=== PATIENT | female | born 1975 | race Hispanic/Latino ===

== ENCOUNTER 2017-04-25 22:11 | Emergency (ER) | payer MEDICAID ==
[2017-04-26 00:12] LABS: Anion Gap 16 mmol/L; Blood Urea Nitrogen 7 mg/dL (7-17); Calcium 9.1 mg/dL (8.4-10.2); Carbon Dioxide 27 mmol/L (22-30); Chloride 101.2 mmol/L (98-107); Glucose 95 mg/dL (65-100); Potassium 3.6 mmol/L (3.6-5.0); Sodium 141 mmol/L (137-145)
[2017-04-26 00:29] LABS: Basophils % (Auto) 0.3 % (0.0-1.8); Eosinophils % (Auto) 2.6 % (0.0-4.3); Hematocrit 40.4 % (30.3-42.9); Hemoglobin 13.2 gm/dl (10.1-14.3); Mean Corpuscular HGB Conc 33 % (30-34); Mean Corpuscular Hemoglobin 28 pg (28-32); Mean Corpuscular Volume 86 fl (79-97); Platelet Count 281 K/mm3 (140-440); Red Blood Count 4.69 M/mm3 (3.65-5.03); Red Cell Distribution Width 13.4 % (13.2-15.2); White Blood Count 10.7 K/mm3 (4.5-11.0)
[2017-04-26 00:39] LABS: INR 1.04 (0.87-1.13)
[2017-04-26 00:40] LABS: Partial Thromboplastin Time 26.4 Sec. (24.2-36.6)
[2017-04-26] MEDS ORDERED: PROVENTIL IH ONE ×2 (01:41→04:28)
[2017-04-26] MEDS ORDERED: TYLENOL PO ONE (01:41)
[2017-04-26] MEDS ORDERED: NACL 0.9% 250ML 250 ML IV ONE (01:41)
--- NOTE | 2017-04-26 01:42 | Emergency Department Report ---
ED Chest Pain HPI - General Chief Complaint: Chest Pain Stated Complaint: CHEST PAIN Time Seen by Provider: 04/26/17 01:32 Source: patient, RN notes reviewed, old records reviewed Mode of arrival: Ambulatory Limitations: No Limitations - History of Present Illness Initial Comments: This is a 42-year-old female. This provider has evaluated the patient in the past. Has a past medical history of acute on chronic chest pain, neuropathy, possible anxiety, asthma/bronchitis. This provider saw the patient 10/01/2015 for chest pain. At that time, the patient endorses a history of 2 negative cardiac catheterizations, as well as a negative cardiac stress test. She made no mention of a history of cardiac arrest, pulmonary embolus, or thromboembolic disease. Today, the patient presents to the ER complaining of chest pain that is left- sided. It radiates to the left arm and left rib. Patient endorsed to the triage nurse shortness of breath, nausea, headache and diaphoresis. Patient indicated that the pain started 5 hours prior to presentation. Patient also endorses cough, cold, recent antibiotic course. Patient to me denies leg pain, leg swelling, recent change greater than 4 hours , recent hospital admissions. She endorsed to the triage nurse a history of congestive heart failure, mitral valve prolapse, myocardial infarction, COPD, seizure, cardiac arrest, and blood clot. I specifically asked the patient when she had her cardiac arrest and blood clot , as she did not mention this history to me in September 2015. Patient stated that she wasn't sure, "maybe it happened at another hospital, I just don't know." The patient states the pain increases with palpation, and decreases with rest. The patient denies recent trips greater than 4 hours, surgeries, cocaine use, aspirin use. MD Complaint: chest pain -: Gradual Onset: during rest Pain Location: left chest Pain Radiation: LUE, back Severity: mild Quality: aching Consistency: intermittent Improves With: rest Worsens With: palpation re: dyspnea Treatments Prior to Arrival: none Aspirin use within the Past 7 Days: (0) No - Related Data On Oral Contraceptives: No Home Medications Medication Instructions Recorded Confirmed Last Taken Fluticasone/Salmeterol [Advair 1 puff INHALATION BID 02/15/14 10/01/15 04/01/15 Diskus 250-50 mcg] Diltiazem HCl [Diltiazem ER] 240 mg PO DAILY 10/01/15 10/01/15 04/01/15 Furosemide [Lasix] 20 mg PO QDAY 10/01/15 10/01/15 04/01/15 Potassium Chloride [K-Dur] 10 meq PO QDAY 10/01/15 10/01/15 04/01/15 Rizatriptan Benzoate [Maxalt] 5 mg PO DAILY 10/01/15 10/01/15 04/01/15 Previous Rx's Medication Instructions Recorded Last Taken Type Gabapentin [Gralise] 600 mg PO QDAY #30 tab.er.24h 05/26/14 04/01/15 Rx Rizatriptan Benzoate [Maxalt] 5 mg PO Q2HR #10 tab 11/27/14 04/01/15 Rx Albuterol Sulfate [Ventolin HFA] 2 puff IH Q4H PRN #1 hfa.aer.ad 02/06/15 Rx Ondansetron [Zofran ODT TAB] 8 mg PO Q12HR #6 tab.rapdis 04/03/15 Unknown Rx Ibuprofen [Motrin] 600 mg PO Q8H PRN #30 tablet 04/26/17 Unknown Rx Allergies Allergy/AdvReac Type Severity Reaction Status Date / Time phenobarbital AdvReac Unknown Verified 04/03/15 13:33 phenytoin sodium AdvReac Unknown Verified 04/03/15 13:33 [From Dilantin] phenytoin sodium extended AdvReac Unknown Verified 04/03/15 13:33 [From Dilantin] pseudoephedrine HCl AdvReac Unknown Verified 04/03/15 13:33 [From Sudafed] sulfamethoxazole AdvReac Unknown Verified 04/03/15 13:33 [From Bactrim] trimethoprim [From Bactrim] AdvReac Unknown Verified 04/03/15 13:33 triprolidine HCl AdvReac Unknown Verified 04/03/15 13:33 [From Actifed] Heart Score - HEART Score History: Slightly suspicious EKG: Normal Age: < 45 Risk factors: 1-2 risk factors Troponin: < normal limit HEART Score: 1 - Critical Actions Critical Actions: 0-3 pts:0.9-1.7%risk of adverse cardiac event.Candidate for discharge ED Review of Systems ROS: Stated complaint: CHEST PAIN Other details as noted in HPI Constitutional: see HPI, malaise, weakness Eyes: denies: eye discharge ENT: congestion Respiratory: cough, shortness of breath. denies: wheezing Cardiovascular: denies: chest pain, palpitations Endocrine: no symptoms reported Gastrointestinal: denies: abdominal pain, nausea Genitourinary: denies: urgency, dysuria, discharge Musculoskeletal: back pain, arthralgia. denies: joint swelling Skin: denies: rash, lesions Neurological: headache, weakness. denies: paresthesias Psychiatric: anxiety. denies: depression, homicidal thoughts, suicidal thoughts Hematological/Lymphatic: denies: easy bleeding, easy bruising ED Past Medical Hx - Past Medical History Previous Medical History?: Yes Hx Hypertension: Yes Hx Heart Attack/AMI: Yes (she thinks she's had an NV in the past) Hx Congestive Heart Failure: Yes Hx Headaches / Migraines: Yes Hx Seizures: Yes (not on any medication x 3 years) Hx Asthma: Yes Hx COPD: Yes Additional medical history: MVP, Told she had a blood clot in the past but doesn 't know where, States she has had cardiac arrest and had to be shocked in the past - Surgical History Past Surgical History?: Yes Additional Surgical History: X 3. cardiaC cath X 2 - Social History Smoking Status: Never Smoker - Medications Home Medications: Home Medications Medication Instructions Recorded Confirmed Last Taken Type Fluticasone/Salmeterol [Advair 1 puff INHALATION BID 02/15/14 10/01/15 04/01/15 History Diskus 250-50 mcg] Gabapentin [Gralise] 600 mg PO QDAY #30 tab.er.24h 05/26/14 10/01/15 04/01/15 Rx Rizatriptan Benzoate [Maxalt] 5 mg PO Q2HR #10 tab 11/27/14 10/01/15 04/01/15 Rx Albuterol Sulfate [Ventolin HFA] 2 puff IH Q4H PRN #1 hfa.aer.ad 02/06/1504/01/15 Rx Ondansetron [Zofran ODT TAB] 8 mg PO Q12HR #6 tab.rapdis 04/03/15 10/01/15 Unknown Rx Diltiazem HCl [Diltiazem ER] 240 mg PO DAILY 10/01/15 10/01/15 04/01/15 History Furosemide [Lasix] 20 mg PO QDAY 10/01/15 10/01/15 04/01/15 History Potassium Chloride [K-Dur] 10 meq PO QDAY 10/01/15 10/01/15 04/01/15 History Rizatriptan Benzoate [Maxalt] 5 mg PO DAILY 10/01/15 10/01/15 04/01/15 History Ibuprofen [Motrin] 600 mg PO Q8H PRN #30 tablet 04/26/17 Unknown Rx ED Physical Exam - General Limitations: No Limitations General appearance: alert, in no apparent distress, anxious - Head Head exam: Present: atraumatic, normocephalic - Eye Eye exam: Present: normal appearance, EOMI. Absent: nystagmus - ENT ENT exam: Present: normal exam, normal orophraynx, mucous membranes moist, normal external ear exam - Neck Neck exam: Present: normal inspection, full ROM. Absent: tenderness, meningismus - Respiratory Respiratory exam: Present: normal lung sounds bilaterally, chest wall tenderness , other (the bilateral breast exam is unremarkable. There is reproducible anterior chest wall tenderness. During the breast examination, I am escorted by ER nurse Karla Pena). Absent: respiratory distress, wheezes, rales, rhonchi, stridor - Cardiovascular Cardiovascular Exam: Present: regular rate, normal rhythm, normal heart sounds. Absent: bradycardia, tachycardia, irregular rhythm, systolic murmur, diastolic murmur, rubs, gallop - GI/Abdominal GI/Abdominal exam: Present: soft, normal bowel sounds. Absent: distended, tenderness, guarding, rebound, rigid, pulsatile mass - Extremities Exam Extremities exam: Present: normal inspection, full ROM, normal capillary refill. Absent: pedal edema, joint swelling, calf tenderness - Back Exam Back exam: Present: normal inspection, full ROM. Absent: tenderness, CVA tenderness (R), CVA tenderness (L), muscle spasm, paraspinal tenderness, vertebral tenderness - Neurological Exam Neurological exam: Present: alert, oriented X3, normal gait, other (Extraocular movements intact. Tongue midline. No facial droop. Facial sensation intact to light touch in the V1, V2, V3 distribution bilaterally. 5 and 5 strength in 4 extremities.. Sensation is intact to light touch in 4 extremities.). Absent : motor sensory deficit - Psychiatric Psychiatric exam: Present: agitated, anxious. Absent: homicidal ideation, suicidal ideation - Skin Skin exam: Present: warm, dry, intact, normal color. Absent: rash ED Course Vital Signs 04/25/17 22:55 Temperature 97.9 F Pulse Rate 77 Respiratory 20 Rate Blood Pressure 157/81 O2 Sat by Pulse 99 Oximetry AMRIT score - Amrit Score Age > 65: (0) No Aspirin use within the Past 7 Days: (0) No 3 or more CAD Risk Factors: (0) No 2 or more Angina events in past 24 hrs: (0) No Known CAD with more than 50% Stenosis: (0) No Elevated Cardiac Markers: (0) No ST Deviation Greater than 0.5mm: (0) No AMRIT Score: 0 ED Medical Decision Making - Lab Data Result diagrams: 04/25/17 23:20 04/25/17 23:20 Vital Signs 04/25/17 22:55 Temperature 97.9 F Pulse Rate 77 Respiratory 20 Rate Blood Pressure 157/81 O2 Sat by Pulse 99 Oximetry Lab Results 04/25/17 04/25/17 04/25/17 Range/Units 23:20 23:20 23:20 WBC 10.7 (4.5-11.0) K/mm3 RBC 4.69 (3.65-5.03) M/mm3 Hgb 13.2 (10.1-14.3) gm/dl Hct 40.4 (30.3-42.9) % MCV 86 (79-97) fl MCH 28 (28-32) pg MCHC 33 (30-34) % RDW 13.4 (13.2-15.2) % Plt Count 281 (140-440) K/mm3 Lymph % (Auto) 30.4 (13.4-35.0) % White % (Auto) 9.2 H (0.0-7.3) % Eos % (Auto) 2.6 (0.0-4.3) % Baso % (Auto) 0.3 (0.0-1.8) % Lymph # 3.3 (1.2-5.4) K/mm3 White # 1.0 H (0.0-0.8) K/mm3 Eos # 0.3 (0.0-0.4) K/mm3 Baso # 0.0 (0.0-0.1) K/mm3 Seg Neutrophils % 57.5 (40.0-70.0) % Seg Neutrophils # 6.2 (1.8-7.7) K/mm3 PT (12.2-14.9) Sec. INR (0.87-1.13) APTT (24.2-36.6) Sec. D-Dimer (0-234) ng/mlDDU Sodium 141 (137-145) mmol/L Potassium 3.6 (3.6-5.0) mmol/L Chloride 101.2 (98-107) mmol/L Carbon Dioxide 27 (22-30) mmol/L Anion Gap 16 mmol/L BUN 7 (7-17) mg/dL Creatinine 0.5 L (0.7-1.2) mg/dL Estimated GFR > 60 ml/min BUN/Creatinine Ratio 14.00 % Glucose 95 (65-100) mg/dL Calcium 9.1 (8.4-10.2) mg/dL Troponin T < 0.010 (0.00-0.029) ng/mL NT-Pro-B Natriuret Pep 74.45 (0-450) pg/mL HCG, Quant (0-4) mIU/mL Urine Color (Yellow) Urine Turbidity (Clear) Urine pH (5.0-7.0) Ur Specific [place] (1.003-1.030) Urine Protein (Negative) mg/dL Urine Glucose (UA) (Negative) mg/dL Urine Ketones (Negative) mg/dL Urine Blood (Negative) Urine Nitrite (Negative) Urine Bilirubin (Negative) Urine Urobilinogen (<2.0) mg/dL Ur Leukocyte Esterase (Negative) Urine WBC (Auto) (0.0-6.0) /HPF Urine RBC (Auto) (0.0-6.0) /HPF U Epithel Cells (Auto) (0-13.0) /HPF Urine Mucus /HPF Urine HCG, Qual (Negative) 04/25/17 04/26/17 04/26/17 Range/Units 23:46 00:15 01:55 WBC (4.5-11.0) K/mm3 RBC (3.65-5.03) M/mm3 Hgb (10.1-14.3) gm/dl Hct (30.3-42.9) % MCV (79-97) fl MCH (28-32) pg MCHC (30-34) % RDW (13.2-15.2) % Plt Count (140-440) K/mm3 Lymph % (Auto) (13.4-35.0) % White % (Auto) (0.0-7.3) % Eos % (Auto) (0.0-4.3) % Baso % (Auto) (0.0-1.8) % Lymph # (1.2-5.4) K/mm3 White # (0.0-0.8) K/mm3 Eos # (0.0-0.4) K/mm3 Baso # (0.0-0.1) K/mm3 Seg Neutrophils % (40.0-70.0) % Seg Neutrophils # (1.8-7.7) K/mm3 PT 13.5 (12.2-14.9) Sec. INR 1.04 (0.87-1.13) APTT 26.4 (24.2-36.6) Sec. D-Dimer 261.10 H (0-234) ng/mlDDU Sodium (137-145) mmol/L Potassium (3.6-5.0) mmol/L Chloride (98-107) mmol/L Carbon Dioxide (22-30) mmol/L Anion Gap mmol/L BUN (7-17) mg/dL Creatinine (0.7-1.2) mg/dL Estimated GFR ml/min BUN/Creatinine Ratio % Glucose (65-100) mg/dL Calcium (8.4-10.2) mg/dL Troponin T < 0.010 (0.00-0.029) ng/mL NT-Pro-B Natriuret Pep (0-450) pg/mL HCG, Quant (0-4) mIU/mL Urine Color Yellow (Yellow) Urine Turbidity Clear (Clear) Urine pH 5.0 (5.0-7.0) Ur Specific [place] 1.019 (1.003-1.030) Urine Protein <15 mg/dl (Negative) mg/dL Urine Glucose (UA) Neg (Negative) mg/dL Urine Ketones Neg (Negative) mg/dL Urine Blood Neg (Negative) Urine Nitrite Neg (Negative) Urine Bilirubin Neg (Negative) Urine Urobilinogen < 2.0 (<2.0) mg/dL Ur Leukocyte Esterase Neg (Negative) Urine WBC (Auto) 3.0 (0.0-6.0) /HPF Urine RBC (Auto) 5.0 (0.0-6.0) /HPF U Epithel Cells (Auto) 5.0 (0-13.0) /HPF Urine Mucus 2+ /HPF Urine HCG, Qual Negative (Negative) 04/26/17 04/26/17 Range/Units 01:55 03:13 WBC (4.5-11.0) K/mm3 RBC (3.65-5.03) M/mm3 Hgb (10.1-14.3) gm/dl Hct (30.3-42.9) % MCV (79-97) fl MCH (28-32) pg MCHC (30-34) % RDW (13.2-15.2) % Plt Count (140-440) K/mm3 Lymph % (Auto) (13.4-35.0) % White % (Auto) (0.0-7.3) % Eos % (Auto) (0.0-4.3) % Baso % (Auto) (0.0-1.8) % Lymph # (1.2-5.4) K/mm3 White # (0.0-0.8) K/mm3 Eos # (0.0-0.4) K/mm3 Baso # (0.0-0.1) K/mm3 Seg Neutrophils % (40.0-70.0) % Seg Neutrophils # (1.8-7.7) K/mm3 PT (12.2-14.9) Sec. INR (0.87-1.13) APTT (24.2-36.6) Sec. D-Dimer (0-234) ng/mlDDU Sodium (137-145) mmol/L Potassium (3.6-5.0) mmol/L Chloride (98-107) mmol/L Carbon Dioxide (22-30) mmol/L Anion Gap mmol/L BUN (7-17) mg/dL Creatinine (0.7-1.2) mg/dL Estimated GFR ml/min BUN/Creatinine Ratio % Glucose (65-100) mg/dL Calcium (8.4-10.2) mg/dL Troponin T < 0.010 (0.00-0.029) ng/mL NT-Pro-B Natriuret Pep (0-450) pg/mL HCG, Quant < 2 (0-4) mIU/mL Urine Color (Yellow) Urine Turbidity (Clear) Urine pH (5.0-7.0) Ur Specific [place] (1.003-1.030) Urine Protein (Negative) mg/dL Urine Glucose (UA) (Negative) mg/dL Urine Ketones (Negative) mg/dL Urine Blood (Negative) Urine Nitrite (Negative) Urine Bilirubin (Negative) Urine Urobilinogen (<2.0) mg/dL Ur Leukocyte Esterase (Negative) Urine WBC (Auto) (0.0-6.0) /HPF Urine RBC (Auto) (0.0-6.0) /HPF U Epithel Cells (Auto) (0-13.0) /HPF Urine Mucus /HPF Urine HCG, Qual (Negative) - EKG Data -: EKG Interpreted by Me EKG shows normal: sinus rhythm - EKG Data 04/26/17 04:18 Normal sinus, 69 beats per minute, borderline left axis, QTC within normal limits, not morphologically consistent with STEMI, appears unchanged from prior EKG 10/01/2015. 04/26/17 04:56 EKG #2 demonstrates sinus, 77 beats per minute, persistent left axis deviation, unchanged from prior EKG. - Radiology Data Radiology results: image reviewed interpreted by me: X-ray of the chest is negative for acute disease - Medical Decision Making Differential diagnosis: Pneumonia, bronchitis, costochondritis, acute coronary syndrome, conversion disorder, anxiety, GERD/reflux Assessment and plan: 42-year-old female who was inconsistent with her history, with chest pain. I find the patient to be low risk by AMRIT score, and low risk by heart score. She does endorse some fairly classic historical features or chest pain, however she presented almost identically when I previously evaluated her. Troponins are negative 3, EKG unchanged 2, patient resting comfortable, vital signs are stable, CT scan of the chest is negative for acute disease, patient has been observed in the ER for a prolonged period of time without clinical decompensation, I don't believe the patient requires admission to the hospital for acute coronary syndrome risk stratification, there are multiple local cardiology group's who are happy to accommodate patient's such as this for outpatient ACS risk stratification. Patient is given names, phone numbers, addresses of local cardiology group, and she is instructed to call them to follow up for outpatient repeat risk stratification. Critical care attestation.: If time is entered above; I have spent that time in minutes in the direct care of this critically ill patient, excluding procedure time. ED Disposition Clinical Impression: Chest wall pain Disposition: DC- TO HOME OR SELFCARE Is pt being admited?: No Does the pt Need Aspirin: No Condition: Stable Instructions: Chest Pain (ED) Additional Instructions: Take the pain medication as directed. Follow up with any of the listed local cardiology group's within the next 3-5 days. Return to the ER right away with new pain, worsened pain, migration of pain, fevers, chills, lethargy, irritability, projectile vomiting, change in mental status, confusion, inability to tolerate liquid feeds. Prescriptions: Ibuprofen [Motrin] 600 mg PO Q8H PRN #30 tablet PRN Reason: Pain Referrals: PRIMARY CARE, [Primary Care Provider] - 3-5 Days [facility] [Provider Group] - 3-5 Days [facility] [Provider Group] - 3-5 Days
[2017-04-26 02:34] LABS: Bilirubin,Urine NEG (Negative); Blood,Urine NEG (Negative); Ketones,Urine NEG (Negative); Leukocyte Esterase,Urine NEG (Negative); Mucus,Urine 2+ /HPF; Nitrite,Urine NEG (Negative); Protein,Urine <15 mg/dL mg/dL (Negative); Urobilinogen,Urine < 2.0 mg/dL (<2.0)
[2017-04-26] MEDS ORDERED: NACL ONE (02:35)
[2017-04-26] MEDS ORDERED: TORADOL IV ONE (04:15)
[2017-04-26] MEDS ORDERED: TYLENOL ONE (04:24)
[2017-04-26] MEDS ORDERED: NACL 0.9% 250ML 250 ML ONE (04:24)
--- NOTE | 2017-04-26 04:26 | Cat Scan Report ---
FINAL REPORT EXAM: CT ANGIO CHEST HISTORY: cp TECHNIQUE: CT imaging obtained through the chest in pulmonary angiographic phase following intravenous administration of contrast. Transaxial, Coronal and sagittal reformats with maximal intensity projections are provided. PRIORS: 11/27/2014 FINDINGS: Normal caliber main pulmonary artery. Well opacified pulmonary arterial tree. No pulmonary embolism. No pericardial effusion. Thoracic aorta is normal in course and caliber. No periaortic fluid or stranding. No pneumothorax, effusion or focal airspace disease. The central airways are patent. No bronchiectasis. Imaged portion of the upper abdomen is unremarkable. A 2 centimeter left thyroid nodule is present. The superficial soft tissues are unremarkable. No acute bony abnormality or worrisome osseous lesions identified. IMPRESSION: No pulmonary embolism or other acute finding. A 2 centimeter left thyroid nodule is present and appears unchanged from prior. Consider ultrasound follow-up if not previously obtained.
[2017-04-26 05:07] VITALS: BP 141/57
--- NOTE | 2017-04-26 07:14 | XRay Report ---
ROUTINE CHEST, TWO VIEWS: HISTORY: Shortness of breath. The trachea, heart, mediastinal contour, lung [place] and bony thorax are unremarkable. IMPRESSION: Unremarkable chest x-ray.
== END 2017-04-26 05:28 | disposition home or self-care (01) ==
LOC: ED 22:11
DX: R07.89 Other chest pain (principal); Z88.8 Allergy status to other drugs, medicaments and biological substances; Z88.2 Allergy status to sulfonamides; I10 Essential (primary) hypertension; I50.9 Heart failure, unspecified; J45.909 Unspecified asthma, uncomplicated; J44.9 Chronic obstructive pulmonary disease, unspecified
CPT/HCPCS: 36415; 71020; 71275; 80048; 81001; 81025; 83880; 84484; 84702; 85025; 85379; 85610; 85730; 93005; 93010; 94640; 96361; 96374; 99285; J1885; J7050; Q9967

== ENCOUNTER 2019-04-26 00:37 | Observation (INO) | payer MEDICAID ==
[2019-04-26] MEDS ORDERED: ASPIRIN 325 MG TAB PO ONE (01:00)
[2019-04-26 01:24] LABS: Basophils # (Auto) 0.1 K/mm3 (0.0-0.1); Basophils % (Auto) 0.9 % (0.0-1.8); Eosinophils # (Auto) 0.3 K/mm3 (0.0-0.4); Hematocrit 41.1 % (30.3-42.9); Hemoglobin 13.3 gm/dl (10.1-14.3); Lymphocytes # (Auto) 3.5 K/mm3 (1.2-5.4); Lymphocytes % (Auto) 30.8 % (13.4-35.0); Mean Corpuscular HGB Conc 33 % (30-34); Mean Corpuscular Volume 86 fl (79-97); Monocytes # (Auto) 1.2 K/mm3 (0.0-0.8); Monocytes % (Auto) 10.4 % (0.0-7.3); Platelet Count 273 K/mm3 (140-440); Red Blood Count 4.77 M/mm3 (3.65-5.03); Red Cell Distribution Width 13.7 % (13.2-15.2)
[2019-04-26 01:45] LABS: BUN/Creatinine Ratio 20; Blood Urea Nitrogen 10 mg/dL (7-17); Calcium 9.4 mg/dL (8.4-10.2); Hemolysis Index 27
[2019-04-26] MEDS ORDERED: MORPHINE 4 MG/1 ML INJ IV ONE (02:16)
[2019-04-26] MEDS ORDERED: ONDANSETRON 4 MG/2 ML INJ IV ONE (02:16)
--- NOTE | 2019-04-26 02:28 | Emergency Department Report ---
ED Chest Pain HPI - General Chief Complaint: Chest Pain Stated Complaint: HOT FLASHES Time Seen by Provider: 04/26/19 01:31 Source: patient, EMS, old records reviewed (neg stress test on record 2018) Mode of arrival: Stretcher Limitations: No Limitations - History of Present Illness Initial Comments: 44-year-old female with a past medical history of mitral valve prolapse, htn, COPD, CHF, and asthma presents to the hospital complaining of intermittent chest pain and headache. Patient states she's had intermittent headache for the last 2 weeks. Pain starts in the left side of forehead and radiates across. Patient did have an episode of headache associated with her chest pain earlier today with left facial numbness. Patient also complains of a popping sensation in her jaw. Headache is persistent at this time but numbness has improved. Patient has been having chronic intermittent chest pain. Today she had a sudden onset of stabbing chest pain midline with pain radiation to her left shoulder and arm. Patient states she's been having intermittent diaphoresis which she attributed to hot flashes. She has chronic shortness of breath which is unchanged. No reports of vomiting. She states she's had 2 cardiac caths with angioplasty but denies stents. She does not take an aspirin daily. Lung specialist: Dr. Linares cv/cvn cv tsc system operator: Dr. Ballard. - Related Data Home Medications Medication Instructions Recorded Confirmed Last Taken Furosemide [Lasix TAB] 20 mg PO QDAY 10/01/15 07/16/18 2 Days Ago ~07/14/18 Potassium Chloride [K-Dur] 10 meq PO QDAY 10/01/15 07/16/18 2 Days Ago ~07/14/18 Previous Rx's Medication Instructions Recorded Last Taken Type Hydrocortisone [Anucort-HC SUPPOS] 25 mg ID Q12H PRN #1 unit 02/25/18 Unknown Rx Albuterol Sulfate [Ventolin HFA] 2 puff IH Q4H PRN #1 hfa.aer.ad 07/17/18 Unknown Rx Arformoterol Nebu [Brovana Nebu] 15 mcg IH Q12HRT #20 ml 07/17/18 Unknown Rx Aspirin 325 mg PO QDAY #100 tablet 07/17/18 Unknown Rx Diltiazem HCl [Diltiazem 24Hr ER] 240 mg PO DAILY #30 cap.sa.24h 07/17/18 Unknown Rx Fluticasone/Salmeterol [Advair 1 puff INHALATION BID #1 blst.w.dev 07/17/18 Unknown Rx Diskus 250-50 mcg] Rizatriptan Benzoate [Maxalt] 5 mg PO DAILY PRN #9 07/17/18 Unknown Rx Venlafaxine Xr (Nf) 37.5 mg PO QHS #30 07/17/18 Unknown Rx busPIRone [Buspar] 10 mg PO TID #90 tablet 07/17/18 Unknown Rx Allergies Allergy/AdvReac Type Severity Reaction Status Date / Time phenobarbital AdvReac Unknown Verified 04/03/15 13:33 phenytoin sodium AdvReac Unknown Verified 04/03/15 13:33 [From Dilantin] phenytoin sodium extended AdvReac Unknown Verified 04/03/15 13:33 [From Dilantin] pseudoephedrine HCl AdvReac Unknown Verified 04/03/15 13:33 [From Sudafed] sulfamethoxazole AdvReac Unknown Verified 04/03/15 13:33 [From Bactrim] trimethoprim [From Bactrim] AdvReac Unknown Verified 04/03/15 13:33 triprolidine HCl AdvReac Unknown Verified 04/03/15 13:33 [From Actifed] Heart Score - HEART Score History: Slightly suspicious EKG: Normal Age: 45-65 Risk factors: > 3 risk factors or hx of atherosclerotic disease Troponin: < normal limit HEART Score: 3 ED Review of Systems ROS: Stated complaint: HOT FLASHES Other details as noted in HPI Comment: All other systems reviewed and negative ED Past Medical Hx - Past Medical History Previous Medical History?: Yes Hx Hypertension: Yes Hx Heart Attack/AMI: Yes (she thinks she's had an IA in the past) Hx Congestive Heart Failure: Yes Hx Headaches / Migraines: Yes Hx Seizures: Yes (No on meds.) Hx Asthma: Yes Hx COPD: Yes Additional medical history: MVP, Told she had a blood clot in the past but doesn't know where, States she has had cardiac arrest and had to be shocked in the past. Gallbladder disease. - Surgical History Past Surgical History?: Yes Additional Surgical History: X 3. cardiaC cath X 2 - Social History Smoking Status: Never Smoker Substance Use Type: None - Medications Home Medications: Home Medications Medication Instructions Recorded Confirmed Last Taken Type Furosemide [Lasix TAB] 20 mg PO QDAY 10/01/15 07/16/18 2 Days Ago History ~07/14/18 Potassium Chloride [K-Dur] 10 meq PO QDAY 10/01/15 07/16/18 2 Days Ago History ~07/14/18 Hydrocortisone [Anucort-HC SUPPOS] 25 mg ID Q12H PRN #1 unit 02/25/18 07/16/18 Unknown Rx Albuterol Sulfate [Ventolin HFA] 2 puff IH Q4H PRN #1 hfa.aer.ad 07/17/18 Unknown Rx Arformoterol Nebu [Brovana Nebu] 15 mcg IH Q12HRT #20 ml 07/17/18 Unknown Rx Aspirin 325 mg PO QDAY #100 tablet 07/17/18 Unknown Rx Diltiazem HCl [Diltiazem 24Hr ER] 240 mg PO DAILY #30 cap.sa.24h 07/17/18 Unknown Rx Fluticasone/Salmeterol [Advair 1 puff INHALATION BID #1 blst.w.dev 07/17/18 Unknown Rx Diskus 250-50 mcg] Rizatriptan Benzoate [Maxalt] 5 mg PO DAILY PRN #9 07/17/18 Unknown Rx Venlafaxine Xr (Nf) 37.5 mg PO QHS #30 07/17/18 Unknown Rx busPIRone [Buspar] 10 mg PO TID #90 tablet 07/17/18 Unknown Rx ED Physical Exam - General Limitations: No Limitations - Other Other exam information: Gen.: No acute distress Head: Atraumatic Eyes: Normal appearance ENT: Moist mucous membranes Neck: Normal appearance, no posterior midline tenderness, no meningismus Chest: Clear to auscultation bilaterally Cardiovascular: Regular rate and rhythm Abdomen: Normal appearance, soft, nontender, no rebound or guarding, normal bowel sounds Back: Normal appearance, nontender Extremity: Full range of motion, normal appearance Neuro: Alert, clear speech, no focal motor or sensory deficit Psychiatric: Appropriate Skin: No rash ED Course Vital Signs 04/26/19 04/26/19 04/26/19 00:49 01:40 02:43 Temperature 99.2 F 98.4 F Pulse Rate 78 75 68 Respiratory 18 14 23 Rate Blood Pressure 137/74 141/75 Blood Pressure 148/76 [Left] O2 Sat by Pulse 96 98 95 Oximetry 04/26/19 03:01 Temperature Pulse Rate 67 Respiratory 18 Rate Blood Pressure 141/75 Blood Pressure [Left] O2 Sat by Pulse 96 Oximetry AMRIT score - Amrit Score Age > 65: (0) No Aspirin use within the Past 7 Days: (0) No 3 or more CAD Risk Factors: (1) Yes 2 or more Angina events in past 24 hrs: (1) Yes Known CAD with more than 50% Stenosis: (1) Yes Elevated Cardiac Markers: (0) No ST Deviation Greater than 0.5mm: (0) No AMRIT Score: 3 ED Medical Decision Making - Lab Data Result diagrams: 04/26/19 01:12 04/26/19 01:12 Lab Results 04/26/19 04/26/19 04/26/19 Range/Units 01:12 01:12 01:12 WBC 11.3 H (4.5-11.0) K/mm3 RBC 4.77 (3.65-5.03) M/mm3 Hgb 13.3 (10.1-14.3) gm/dl Hct 41.1 (30.3-42.9) % MCV 86 (79-97) fl MCH 28 (28-32) pg MCHC 33 (30-34) % RDW 13.7 (13.2-15.2) % Plt Count 273 (140-440) K/mm3 Lymph % (Auto) 30.8 (13.4-35.0) % [place] % (Auto) 10.4 H (0.0-7.3) % Eos % (Auto) 3.0 (0.0-4.3) % Baso % (Auto) 0.9 (0.0-1.8) % Lymph # 3.5 (1.2-5.4) K/mm3 [place] # 1.2 H (0.0-0.8) K/mm3 Eos # 0.3 (0.0-0.4) K/mm3 Baso # 0.1 (0.0-0.1) K/mm3 Seg Neutrophils % 54.9 (40.0-70.0) % Seg Neutrophils # 6.2 (1.8-7.7) K/mm3 D-Dimer (0-234) ng/mlDDU Sodium 135 L (137-145) mmol/L Potassium 4.1 (3.6-5.0) mmol/L Chloride 98.7 (98-107) mmol/L Carbon Dioxide 26 (22-30) mmol/L Anion Gap 14 mmol/L BUN 10 (7-17) mg/dL Creatinine 0.5 L (0.7-1.2) mg/dL Estimated GFR > 60 ml/min BUN/Creatinine Ratio 20 % Glucose 107 H (65-100) mg/dL Calcium 9.4 (8.4-10.2) mg/dL Troponin T < 0.010 (0.00-0.029) ng/mL HCG, Qual Negative (Negative) 04/26/19 04/26/19 Range/Units 02:51 02:51 WBC (4.5-11.0) K/mm3 RBC (3.65-5.03) M/mm3 Hgb (10.1-14.3) gm/dl Hct (30.3-42.9) % MCV (79-97) fl MCH (28-32) pg MCHC (30-34) % RDW (13.2-15.2) % Plt Count (140-440) K/mm3 Lymph % (Auto) (13.4-35.0) % [place] % (Auto) (0.0-7.3) % Eos % (Auto) (0.0-4.3) % Baso % (Auto) (0.0-1.8) % Lymph # (1.2-5.4) K/mm3 [place] # (0.0-0.8) K/mm3 Eos # (0.0-0.4) K/mm3 Baso # (0.0-0.1) K/mm3 Seg Neutrophils % (40.0-70.0) % Seg Neutrophils # (1.8-7.7) K/mm3 D-Dimer 210.78 (0-234) ng/mlDDU Sodium (137-145) mmol/L Potassium (3.6-5.0) mmol/L Chloride (98-107) mmol/L Carbon Dioxide (22-30) mmol/L Anion Gap mmol/L BUN (7-17) mg/dL Creatinine (0.7-1.2) mg/dL Estimated GFR ml/min BUN/Creatinine Ratio % Glucose (65-100) mg/dL Calcium (8.4-10.2) mg/dL Troponin T < 0.010 (0.00-0.029) ng/mL HCG, Qual (Negative) - EKG Data -: EKG Interpreted by Me EKG shows normal: sinus rhythm, ST-T waves (no stemi) Rate: normal (74) - EKG Data When compared to previous EKG there are: no significant change - Radiology Data Radiology results: report reviewed (ct head: neg) - Medical Decision Making pt with cp with some typical and atypical features ? hx of angioplasty ct head, ekg, trop neg, ddimer neg plan to admit for further obs and tx hospitalist to admit asa, zofran, morphine given in ed - Differential Diagnosis mi, unstable angina, atypical chest pain, muscle pain, ich, intracranial ma Critical Care Time: No Critical care attestation.: If time is entered above; I have spent that time in minutes in the direct care of this critically ill patient, excluding procedure time. ED Disposition Clinical Impression: Chest pain, Headache, Obesity, Hx of primary hypertension Disposition: -09 OP ADMIT IP TO THIS HOSP Is pt being admited?: Yes Does the pt Need Aspirin: Yes Condition: Stable Time of Disposition: 03:52
--- NOTE | 2019-04-26 03:01 | Cat Scan Report ---
CT head/brain wo con INDICATION: headache, intermittent left face numbness. TECHNIQUE: Routine CT head without contrast. All CT scans at this location are performed using CT dos e reduction for ALARA by means of automated exposure control. COMPARISON: None. FINDINGS: BRAIN / INTRACRANIAL CONTENTS: No acute hemorrhage, mass effect, midline shift, or hydrocephalus. No appreciable acute large territorial or lacunar infarct. No chronic infarct or focal atrophy. Normal b rain volume and ventricular/sulcal size for age. ORBITS: No significant abnormality of visualized orbits. SINUSES / MASTOIDS: No significant abnormality of visualized sinuses and mastoid air cells. ADDITIONAL FINDINGS: None. IMPRESSION: 1. Negative head CT. Signer Name: Sridhar Layton MD Signed: 04/26/2019 2:57 AM Workstation Name: [email or web address]
--- NOTE | 2019-04-26 03:46 | XRay Report ---
CHEST 1 VIEW 04/26/2019 2:02 AM INDICATION / CLINICAL INFORMATION: Chest Pain. COMPARISON: Chest x-ray on 07/15/2018. FINDINGS: SUPPORT DEVICES: None. HEART / MEDIASTINUM: No significant abnormality. LUNGS / PLEURA: No significant pulmonary or pleural abnormality. No pneumothorax. ADDITIONAL FINDINGS: No significant additional findings. IMPRESSION: 1. No acute findings. Signer Name: Sridhar Layton MD Signed: 04/26/2019 3:42 AM Workstation Name: [id number]
[2019-04-26] MEDS ORDERED: MORPHINE 2 MG/1 ML INJ IV PRN (04:22)
[2019-04-26] MEDS ORDERED: ONDANSETRON 4 MG/2 ML INJ IV PRN (04:22)
--- NOTE | 2019-04-26 04:38 | History and Physical Report ---
History of Present Illness Date of examination: 04/26/19 History of present illness: 44 -year-old woman with a history of COPD, coronary artery disease, CHF, hypertension, seizure, asthma, mitral valve prolapse emergency room complaints of chest pain in the epigastric area which she describes a dull, constant pain, intensity follow up within radiating to the left arm, cannot identify's exacerbating or relieving factors. Admits to shortness of breath, no nausea vomiting, diaphoresis or palpitation. She had a stress test done one month ago which was negative. Also complaining of headache in the temporal to the frontal area which is now better Review Of Systems: Constitutional: no weight loss, fever, chills Ears, eyes, nose, mouth and throat: no nasal congestion, no nasal discharge, no sinus pressure, blurry vision, diplopia Neck: No neck pain or rigidity. Cardiovascular: No palpitations Respiratory: No cough Gastrointestinal: No hematochezia, abdominal pain Genitourinary : no dysuria, frequency , hematuria Musculoskeletal: no muscle ache , joint pain Integumentary: no rash, no pruritis Neurological: no parathesias, focal weakness Endocrine: no cold or heat intolerance, no polyuria or polydipsia Hematologic/Lymphatic: no easy bruising, no easy bleeding, no gland swelling Allergic/Immunologic: no urticaria, no angioedema. PAST MEDICAL HISTORY:COPD, coronary artery disease, CHF, hypertension, seizure, asthma, mitral valve prolapse PAST SURGICAL HISTORY:c/section X3 FAMILY HISTORY:hypertension, diabetes SOCIAL HISTORY: Denies tobacco, drugs, alcohol Medications and Allergies Allergies Allergy/AdvReac Type Severity Reaction Status Date / Time phenobarbital AdvReac Unknown Verified 04/03/15 13:33 phenytoin sodium AdvReac Unknown Verified 04/03/15 13:33 [From Dilantin] phenytoin sodium extended AdvReac Unknown Verified 04/03/15 13:33 [From Dilantin] pseudoephedrine HCl AdvReac Unknown Verified 04/03/15 13:33 [From Sudafed] sulfamethoxazole AdvReac Unknown Verified 04/03/15 13:33 [From Bactrim] trimethoprim [From Bactrim] AdvReac Unknown Verified 04/03/15 13:33 triprolidine HCl AdvReac Unknown Verified 04/03/15 13:33 [From Actifed] Home Medications Medication Instructions Recorded Confirmed Last Taken Type Furosemide [Lasix TAB] 20 mg PO QDAY 10/01/15 04/26/19 2 Days Ago History ~07/14/18 Potassium Chloride [K-Dur] 10 meq PO QDAY 10/01/15 04/26/19 2 Days Ago History ~07/14/18 Hydrocortisone [Anucort-HC SUPPOS] 25 mg [place] Q12H PRN #1 unit 02/25/18 04/26/19 Unknown Rx Albuterol Sulfate [Ventolin HFA] 2 puff IH Q4H PRN #1 hfa.aer.ad 07/17/18 04/26/19 Unknown Rx Arformoterol Nebu [Brovana Nebu] 15 mcg IH Q12HRT #20 ml 07/17/18 04/26/19 Unknown Rx Aspirin 325 mg PO QDAY #100 tablet 07/17/18 04/26/19 Unknown Rx Diltiazem HCl [Diltiazem 24Hr ER] 240 mg PO DAILY #30 cap.sa.24h 07/17/18 04/26/19 Unknown Rx Fluticasone/Salmeterol [Advair 1 puff INHALATION BID #1 blst.w.dev 07/17/18 04/26/19 Unknown Rx Diskus 250-50 mcg] Rizatriptan Benzoate [Maxalt] 5 mg PO DAILY PRN #9 07/17/18 04/26/19 Unknown Rx Venlafaxine Xr (Nf) 37.5 mg PO QHS #30 07/17/18 04/26/19 Unknown Rx busPIRone [Buspar] 10 mg PO TID #90 tablet 07/17/18 04/26/19 Unknown Rx Active Meds: Active Medications Acetaminophen (Tylenol) 650 mg PO Q4H PRN PRN Reason: Pain MILD(1-3)/Fever >100.5/JEFF Aspirin (Aspirin) 325 mg PO QDAY [facility] Enoxaparin Sodium (Lovenox) 40 mg SUB-Q QDAY [facility] Morphine Sulfate (Morphine) 2 mg IV Q4H PRN PRN Reason: Pain, Moderate (4-6) Ondansetron HCl (Zofran) 4 mg IV Q8H PRN PRN Reason: Nausea And Vomiting Sodium Chloride (Sodium Chloride Flush Syringe 10 Ml) 10 ml IV BID SEAN Sodium Chloride (Sodium Chloride Flush Syringe 10 Ml) 10 ml IV PRN PRN PRN Reason: LINE FLUSH Exam - Physical Exam Narrative exam: General Apperance: The patient sitting in bed no acute distress HEENT: Normocephalic, atraumatic. Pupils equally round and reactive to light, extraocular movement intact, and no sclericterus or JVD or thyromegaly or nodule. Neck supple, no carotid bruit, mucous membranes moist, no exudate or erythema Heart: S1-S2, regular is rhythm Lungs: Clear to auscultation bilaterally, breathing comfortable Abdomen: Positive bowel sounds, soft, nontender, nondistended, no organomegaly Extremities: No edema cyanosis clubbing Skin: no rash, nodule, warm and dry Neuro:CN 2 -12 intact, motor/sensory intact, speech is fluent - Constitutional Vitals: Temp Pulse Resp BP Pulse Ox 98.4 F 59 L 26 H 130/68 95 04/26/19 01:40 04/26/19 04:00 04/26/19 04:00 04/26/19 04:00 04/26/19 04:00 Results - Labs CBC & Chem 7: 04/26/19 01:12 04/26/19 01:12 Labs: Abnormal lab results 04/26/19 04/26/19 Range/Units 01:12 01:12 WBC 11.3 H (4.5-11.0) K/mm3 [place] % (Auto) 10.4 H (0.0-7.3) % [place] # 1.2 H (0.0-0.8) K/mm3 Sodium 135 L (137-145) mmol/L Creatinine 0.5 L (0.7-1.2) mg/dL Glucose 107 H (65-100) mg/dL - Imaging and Cardiology EKG: image reviewed Chest x-ray: report reviewed CT Scan - head: report reviewed Assessment and Plan Assessment Chest pain Hypertension COPD coronary artery disease CHF, stable seizure, asthma mitral valve prolapse Plan Admit to medicine Check cardiac enzymes,consult cardiology DVT prophalaxis, IV morphine
[2019-04-26] MEDS ORDERED: ALBUTEROL 8.5 GM INHALATION IH PRN (04:54)
[2019-04-26] MEDS ORDERED: ALBUTEROL 2.5 MG/3 ML NEBU IH PRN (05:24)
[2019-04-26 05:26] LABS: Basophils % (Auto) 0.4 % (0.0-1.8); Eosinophils # (Auto) 0.3 K/mm3 (0.0-0.4); Eosinophils % (Auto) 2.4 % (0.0-4.3); Hematocrit 38.8 % (30.3-42.9); Hemoglobin 12.6 gm/dl (10.1-14.3); Lymphocytes # (Auto) 3.7 K/mm3 (1.2-5.4); Lymphocytes % (Auto) 30.5 % (13.4-35.0); Mean Corpuscular HGB Conc 32 % (30-34); Mean Corpuscular Volume 87 fl (79-97); Monocytes # (Auto) 1.3 K/mm3 (0.0-0.8); Platelet Count 255 K/mm3 (140-440); Red Blood Count 4.48 M/mm3 (3.65-5.03); Red Cell Distribution Width 13.8 % (13.2-15.2)
[2019-04-26 05:38] LABS: BUN/Creatinine Ratio 22; Blood Urea Nitrogen 11 mg/dL (7-17); Hemolysis Index 70
[2019-04-26] MEDS: ACETAMINOPHEN 325 MG TAB PO PRN ×3 (06:32→21:10)
[2019-04-26] MEDS: BUDESONIDE 0.5 MG/2 ML NEBU IH SCH ×2 (09:28→19:53)
[2019-04-26] MEDS: ARFORMOTEROL 15 MCG/2 ML NEBU IH SCH ×2 (09:28→19:53)
[2019-04-26] MEDS ORDERED: NON-FORMULARY EACH (Fluticasone/Salmeterol [Advair Diskus 250-50 Mcg] 1 PUFF) INHALATION SCH (10:00)
--- NOTE | 2019-04-26 10:15 | Consultation ---
History of Present Illness Consult date: 04/26/19 Consult reason: chest pain History of present illness: 44-year old woman who is admitted with chest pain. Patient reports a history chronic chest pain but the intensity increased over the past few days. She denies unusual shortness of breath and palpitations. Patient denies nausea and vomiting. A chest x-ray done is negative and her ECG is benign, normal sinus rhythm. Her latest cardiac workup with a persantine thallium test, done less than a year ago, was negative for ischemia. A cardiac consultation has been requested for chest pain evaluation. Medications and Allergies Allergies Allergy/AdvReac Type Severity Reaction Status Date / Time phenobarbital AdvReac Unknown Verified 04/03/15 13:33 phenytoin sodium AdvReac Unknown Verified 04/03/15 13:33 [From Dilantin] phenytoin sodium extended AdvReac Unknown Verified 04/03/15 13:33 [From Dilantin] pseudoephedrine HCl AdvReac Unknown Verified 04/03/15 13:33 [From Sudafed] sulfamethoxazole AdvReac Unknown Verified 04/03/15 13:33 [From Bactrim] trimethoprim [From Bactrim] AdvReac Unknown Verified 04/03/15 13:33 triprolidine HCl AdvReac Unknown Verified 04/03/15 13:33 [From Actifed] Home Medications Medication Instructions Recorded Confirmed Last Taken Type Furosemide [Lasix TAB] 20 mg PO QDAY 10/01/15 04/26/19 2 Days Ago History ~07/14/18 Potassium Chloride [K-Dur] 10 meq PO QDAY 10/01/15 04/26/19 2 Days Ago History ~07/14/18 Hydrocortisone [Anucort-HC SUPPOS] 25 mg [place] Q12H PRN #1 unit 02/25/18 04/26/19 Unknown Rx Albuterol Sulfate [Ventolin HFA] 2 puff IH Q4H PRN #1 hfa.aer.ad 07/17/18 04/26/19 Unknown Rx Arformoterol Nebu [Brovana Nebu] 15 mcg IH Q12HRT #20 ml 07/17/18 04/26/19 Unknown Rx Aspirin 325 mg PO QDAY #100 tablet 07/17/18 04/26/19 Unknown Rx Diltiazem HCl [Diltiazem 24Hr ER] 240 mg PO DAILY #30 cap.sa.24h 07/17/18 04/26/19 Unknown Rx Fluticasone/Salmeterol [Advair 1 puff INHALATION BID #1 blst.w.dev 07/17/18 04/26/19 Unknown Rx Diskus 250-50 mcg] Rizatriptan Benzoate [Maxalt] 5 mg PO DAILY PRN #9 07/17/18 04/26/19 Unknown Rx Venlafaxine Xr (Nf) 37.5 mg PO QHS #30 07/17/18 04/26/19 Unknown Rx busPIRone [Buspar] 10 mg PO TID #90 tablet 07/17/18 04/26/19 Unknown Rx Active Meds: Active Medications Acetaminophen (Tylenol) 650 mg PO Q4H PRN PRN Reason: Pain MILD(1-3)/Fever >100.5/JEFF Last Admin: 04/26/19 06:32 Dose: 650 mg Documented by: Albuterol (Proventil) 2.5 mg IH Q4HRT PRN PRN Reason: Shortness Of Breath Arformoterol Tartrate (Brovana Nebu) 15 mcg IH Q12HRT [facility] Last Admin: 04/26/19 09:28 Dose: 15 mcg Documented by: Aspirin (Aspirin) 325 mg PO QDAY [facility] Budesonide (Pulmicort) 0.5 mg IH Q12HRT [facility] Last Admin: 04/26/19 09:28 Dose: 0.5 mg Documented by: Buspirone HCl (Buspar) 10 mg PO TID [facility] Diltiazem HCl (Cardizem Cd) 240 mg PO DAILY [facility] Enoxaparin Sodium (Lovenox) 40 mg SUB-Q QDAY [facility] Furosemide (Lasix) 20 mg PO QDAY [facility] Miscellaneous Medication (Venlafaxine Xr (Nf)) 37.5 mg PO QHS [facility] Morphine Sulfate (Morphine) 2 mg IV Q4H PRN PRN Reason: Pain, Moderate (4-6) Ondansetron HCl (Zofran) 4 mg IV Q8H PRN PRN Reason: Nausea And Vomiting Sodium Chloride (Sodium Chloride Flush Syringe 10 Ml) 10 ml IV BID [facility] Sodium Chloride (Sodium Chloride Flush Syringe 10 Ml) 10 ml IV PRN PRN PRN Reason: LINE FLUSH Physical Examination Vital Signs Temp Pulse Resp BP Pulse Ox 99.2 F 78 18 137/74 96 04/26/19 00:49 04/26/19 00:49 04/26/19 00:49 04/26/19 00:49 04/26/19 00:49 General appearance: no acute distress HEENT: Positive: PERRL Neck: Positive: trachea midline Cardiac: Positive: Reg Rate and Rhythm Lungs: Positive: Decreased Breath Sounds Neuro: Positive: Grossly Intact Extremities: Absent: edema Results 04/26/19 05:05 04/26/19 05:05 CBC 04/26/19 04/26/19 Range/Units 01:12 05:05 WBC 11.3 H 12.0 H (4.5-11.0) K/mm3 RBC 4.77 4.48 (3.65-5.03) M/mm3 Hgb 13.3 12.6 (10.1-14.3) gm/dl Hct 41.1 38.8 (30.3-42.9) % Plt Count 273 255 (140-440) K/mm3 Lymph # 3.5 3.7 (1.2-5.4) K/mm3 [place] # 1.2 H 1.3 H (0.0-0.8) K/mm3 Eos # 0.3 0.3 (0.0-0.4) K/mm3 Baso # 0.1 0.0 (0.0-0.1) K/mm3 Comprehensive Metabolic Panel 04/26/19 04/26/19 Range/Units 01:12 05:05 Sodium 135 L 136 L (137-145) mmol/L Potassium 4.1 4.5 (3.6-5.0) mmol/L Chloride 98.7 100.5 (98-107) mmol/L Carbon Dioxide 26 26 (22-30) mmol/L BUN 10 11 (7-17) mg/dL Creatinine 0.5 L 0.5 L (0.7-1.2) mg/dL Glucose 107 H 112 H (65-100) mg/dL Calcium 9.4 9.0 (8.4-10.2) mg/dL Assessment and Plan - Patient Problems (1) Chest pain Current Visit: Yes Status: Acute
[2019-04-26] MEDS: busPIRone 10 MG TAB PO SCH ×3 (10:29→21:13)
[2019-04-26] MEDS: ASPIRIN 325 MG TAB PO SCH (10:29)
[2019-04-26] MEDS: FUROSEMIDE 20 MG TAB PO SCH (10:29)
[2019-04-26] MEDS: dilTIAZem CD 240 MG CAP PO SCH (10:29)
[2019-04-26] MEDS: ENOXAPARIN 40 MG/0.4 ML INJ SUB-Q SCH (10:30)
[2019-04-26] MEDS ORDERED: METOPROLOL TARTRATE 5 MG/5 ML INJ IV ONE ×3 (13:20→14:57)
[2019-04-26] MEDS ORDERED: NITROGLYCERIN 0.4 MG TAB SUBL SL ONE (14:00)
--- NOTE | 2019-04-26 14:27 | Progress Note ---
Assessment and Plan Assessment and plan: Patient is a 44 -year-old woman with a history of COPD, coronary artery disease, CHF, hypertension, seizure, asthma and mitral valve prolapse emergency room who presented with CP. She had a stress test done one month ago which was negative. Also complaining of headache in the temporal to the frontal area which is now better Chest pain, atypical: Consulted Cardiology, input noted, coronary CTA for further cardiac chest pain evaluation. Hypertension COPD h/o coronary artery disease h/o CHF, stable h/o seizure, h/o asthma h/o mitral valve prolapse prolonged inpatient services 31 minutes History Interval history: Patient was seen and examined. Follow-up on current diagnosis of substernal CP. No overnight events reported to me. Patient denies any shortness breath, nausea/vomiting or severe headaches. Imaging, nursing note, chart, labs and old chart reviewed. Discussed with patient. Hospitalist Physical - Physical exam Narrative exam: Gen: WDWN, NAD, Awake, Alert, Orientated HEENT: NCAT, EOMI, PERRL, OP Clear Neck: supple, no adenopathy, no thyromegaly, no JVD CVS/Heart: RRR, normal S1S2, pulses present bilaterally Chest/Lungs: CTA B, Symmetrical chest expansion, good air entry bilaterally, reproducible chest wall tenderness GI/Abdomen: soft, NTND, good bowel sounds, no guarding or rebound /Bladder: no suprapubic tenderness, no CVA or paraspinal tenderness Extermity/Skin: no c/c/e, no obvious rash MSK: FROM x 4 Neuro: CN 2-12 grossly intact, no new focal deficits Psych: calm - Constitutional Vitals: Temp Pulse Resp BP Pulse Ox 98.1 F 58 L 16 133/60 97 04/26/19 11:44 04/26/19 14:14 04/26/19 14:14 04/26/19 14:14 04/26/19 14:14 General appearance: Present: no acute distress Results - Labs CBC & Chem 7: 04/26/19 05:05 04/26/19 05:05 Labs: Laboratory Last Values WBC 12.0 K/mm3 (4.5-11.0) H 04/26/19 05:05 RBC 4.48 M/mm3 (3.65-5.03) 04/26/19 05:05 Hgb 12.6 gm/dl (10.1-14.3) 04/26/19 05:05 Hct 38.8 % (30.3-42.9) 04/26/19 05:05 MCV 87 fl (79-97) 04/26/19 05:05 MCH 28 pg (28-32) 04/26/19 05:05 MCHC 32 % (30-34) 04/26/19 05:05 RDW 13.8 % (13.2-15.2) 04/26/19 05:05 Plt Count 255 K/mm3 (140-440) 04/26/19 05:05 Lymph % (Auto) 30.5 % (13.4-35.0) 04/26/19 05:05 [place] % (Auto) 11.0 % (0.0-7.3) H 04/26/19 05:05 Eos % (Auto) 2.4 % (0.0-4.3) 04/26/19 05:05 Baso % (Auto) 0.4 % (0.0-1.8) 04/26/19 05:05 Lymph # 3.7 K/mm3 (1.2-5.4) 04/26/19 05:05 [place] # 1.3 K/mm3 (0.0-0.8) H 04/26/19 05:05 Eos # 0.3 K/mm3 (0.0-0.4) 04/26/19 05:05 Baso # 0.0 K/mm3 (0.0-0.1) 04/26/19 05:05 Seg Neutrophils % 55.7 % (40.0-70.0) 04/26/19 05:05 Seg Neutrophils # 6.7 K/mm3 (1.8-7.7) 04/26/19 05:05 210.78 ng/mlDDU (0-234) 04/26/19 02:51 Sodium 136 mmol/L (137-145) L 04/26/19 05:05 Potassium 4.5 mmol/L (3.6-5.0) 04/26/19 05:05 Chloride 100.5 mmol/L (98-107) 04/26/19 05:05 Carbon Dioxide 26 mmol/L (22-30) 04/26/19 05:05 14 mmol/L 04/26/19 05:05 BUN 11 mg/dL (7-17) 04/26/19 05:05 0.5 mg/dL (0.7-1.2) L 04/26/19 05:05 Estimated GFR > 60 ml/min 04/26/19 05:05 22 % 04/26/19 05:05 Glucose 112 mg/dL (65-100) H 04/26/19 05:05 Calcium 9.0 mg/dL (8.4-10.2) 04/26/19 05:05 < 0.010 ng/mL (0.00-0.029) 04/26/19 06:07 HCG, Qual Negative (Negative) 04/26/19 01:12 Active Medications - Current Medications Current Medications: Generic Name Dose Route Start Last Admin Trade Name Freq PRN Reason Stop Dose Admin Acetaminophen 650 mg 04/26/19 04:22 04/26/19 10:29 Tylenol PO 650 mg Q4H PRN Administration Pain MILD(1-3)/Fever >100.5/JEFF Albuterol 2.5 mg 04/26/19 05:24 Proventil IH Q4HRT PRN Shortness Of Breath Arformoterol Tartrate 15 mcg 04/26/19 08:00 04/26/19 09:28 Brovana Nebu IH 15 mcg Q12HRT SEAN Administration Aspirin 325 mg 04/26/19 10:00 04/26/19 10:29 Aspirin PO 325 mg QDAY SEAN Administration Budesonide 0.5 mg 04/26/19 08:00 04/26/19 09:28 Pulmicort IH 0.5 mg Q12HRT SEAN Administration Buspirone HCl 10 mg 04/26/19 08:00 04/26/19 10:29 Buspar PO 10 mg TID SEAN Administration Diltiazem HCl 240 mg 04/26/19 10:00 04/26/19 10:29 Cardizem Cd PO 240 mg DAILY SEAN Administration Enoxaparin Sodium 40 mg 04/26/19 10:00 04/26/19 10:30 Lovenox SUB-Q 40 mg QDAY SEAN Administration Furosemide 20 mg 04/26/19 10:00 04/26/19 10:29 Lasix PO 20 mg QDAY SEAN Administration Metoprolol Tartrate 5 mg 04/26/19 14:57 04/26/19 13:59 Lopressor IV 04/26/19 14:58 5 mg ONCE ONE Administration Miscellaneous Medication 37.5 mg 04/26/19 22:00 Venlafaxine Xr (Nf) PO QHS SEAN Morphine Sulfate 2 mg 04/26/19 04:22 Morphine IV Q4H PRN Pain, Moderate (4-6) Ondansetron HCl 4 mg 04/26/19 04:22 Zofran IV Q8H PRN Nausea And Vomiting Sodium Chloride 10 ml 04/26/19 10:00 04/26/19 10:30 Sodium Chloride Flush Syringe 10 Ml IV 10 ml BID SEAN Administration Sodium Chloride 10 ml 04/26/19 04:22 Sodium Chloride Flush Syringe 10 Ml IV PRN PRN LINE FLUSH
--- NOTE | 2019-04-26 15:49 | Cat Scan Report ---
Limited CT chest Indication: Limited evaluation of the chest associated with cardiac CTA exam. Technique: Limited axial imaging performed through the chest for cardiac CTA examination. Please refe r to the official cardiac CTA report for further details. All CT scans at this location are performed using CT dose reduction for ALARA by means of automated exposure control. Findings: No pathologic adenopathy. Visualized lungs are clear. There are degenerative changes in the spine with no acute osseous abnormality. Limited imaging through the upper abdomen shows severe hepatic steatosis. Impression: Severe hepatic steatosis. Otherwise nothing acute on this limited exam. Signer Name: Maxx Kingston MD Signed: 04/26/2019 3:45 PM Workstation Name: [id number]
[2019-04-26] MEDS ORDERED: VENLAFAXINE 37.5 MG PO SCH (22:00)
[2019-04-27] MEDS: BUDESONIDE 0.5 MG/2 ML NEBU IH SCH (09:21)
--- NOTE | 2019-04-27 10:56 | Progress Note ---
Assessment and Plan - Patient Problems (1) Chest pain Current Visit: Yes Status: Acute Plan to address problem: Chest pain, atypical Negative coronary CTA this admission. Normal thallium stress 07/2018 No further cardiac workup indicated. Stable cardiac fontana. Once discharged, patient advised to follow up with Dr Ballard as previously scheduled. Subjective Date of service: 04/27/19 Interval history: Patient denies chest pain and shortness of breath; resting in bed comfortably. No events on telemetry monitoring. Objective Vital Signs Temp Pulse Pulse Pulse Pulse Pulse Pulse 04/27/19 07:59 98.4 F 76 04/27/19 05:00 68 04/27/19 03:19 97.9 F 68 04/26/19 23:29 98.5 F 66 04/26/19 21:00 66 04/26/19 20:08 65 04/26/19 20:00 62 61 04/26/19 19:54 04/26/19 19:43 98.6 F 56 L 04/26/19 15:59 97.8 F 56 L 04/26/19 14:14 58 L 04/26/19 14:11 58 L 04/26/19 14:06 54 L 04/26/19 14:01 64 04/26/19 13:59 62 04/26/19 13:56 62 04/26/19 13:51 60 04/26/19 13:46 55 L 04/26/19 13:41 60 04/26/19 13:36 67 04/26/19 13:34 61 04/26/19 13:31 61 04/26/19 13:29 04/26/19 11:44 98.1 F 62 Pulse Pulse Pulse Resp Resp Resp Resp 04/27/19 07:59 20 04/27/19 05:00 04/27/19 03:19 16 04/26/19 23:29 16 04/26/19 21:00 04/26/19 20:08 61 18 04/26/19 20:00 61 18 04/26/19 19:54 04/26/19 19:43 20 04/26/19 15:59 20 04/26/19 14:14 16 04/26/19 14:11 16 04/26/19 14:06 16 04/26/19 14:01 18 04/26/19 13:59 04/26/19 13:56 16 04/26/19 13:51 20 04/26/19 13:46 18 04/26/19 13:41 16 04/26/19 13:36 18 04/26/19 13:34 04/26/19 13:31 19 04/26/19 13:29 61 04/26/19 11:44 20 Resp Resp BP BP BP BP Pulse Ox 04/27/19 07:59 145/79 95 04/27/19 05:00 04/27/19 03:19 140/65 92 04/26/19 23:29 113/56 94 04/26/19 21:00 04/26/19 20:08 18 04/26/19 20:00 04/26/19 19:54 96 04/26/19 19:43 115/58 96 04/26/19 15:59 98/54 94 04/26/19 14:14 133/60 04/26/19 14:11 121/57 04/26/19 14:06 124/60 04/26/19 14:01 111/58 04/26/19 13:59 115/78 04/26/19 13:56 120/62 04/26/19 13:51 108/57 04/26/19 13:46 113/68 04/26/19 13:41 121/60 04/26/19 13:36 114/48 04/26/19 13:34 117/59 04/26/19 13:31 117/51 04/26/19 13:29 16 116/62 04/26/19 11:44 121/55 96 Pulse Ox Pulse Ox Pulse Ox 04/27/19 07:59 04/27/19 05:00 04/27/19 03:19 04/26/19 23:29 04/26/19 21:00 04/26/19 20:08 04/26/19 20:00 04/26/19 19:54 04/26/19 19:43 04/26/19 15:59 04/26/19 14:14 97 04/26/19 14:11 99 04/26/19 14:06 98 04/26/19 14:01 97 04/26/19 13:59 04/26/19 13:56 96 04/26/19 13:51 97 04/26/19 13:46 96 04/26/19 13:41 95 04/26/19 13:36 94 04/26/19 13:34 04/26/19 13:31 93 04/26/19 13:29 98 04/26/19 11:44 - Physical Examination General: No Apparent Distress HEENT: Positive: PERRL Neck: Positive: trachea midline Cardiac: Positive: Reg Rate and Rhythm Lungs: Positive: Normal Breath Sounds Neuro: Positive: Grossly Intact Extremities: Absent: edema
[2019-04-27 11:37] VITALS: BP 137/70
[2019-04-27] MEDS: ASPIRIN 325 MG TAB PO SCH (11:42)
[2019-04-27] MEDS: FUROSEMIDE 20 MG TAB PO SCH (11:42)
[2019-04-27] MEDS: dilTIAZem CD 240 MG CAP PO SCH (11:42)
[2019-04-27] MEDS: ENOXAPARIN 40 MG/0.4 ML INJ SUB-Q SCH (11:43)
[2019-04-27] MEDS: busPIRone 10 MG TAB PO SCH (11:43)
[2019-04-27] MEDS: ARFORMOTEROL 15 MCG/2 ML NEBU IH SCH (14:07)
--- NOTE | 2019-04-27 14:43 | Discharge Summary ---
Providers - Providers Date of Admission: 04/26/19 04:22 Date of discharge: 04/27/19 Attending physician: ERROL ARTEAGA 04/26/19 04:22 Consult to Physician [CONS] Routine Comment: Consulting Provider: CARLOS LING Physician Instructions: Reason For Exam: cp Primary care physician: DIALYSIS REGISTERED NURSE Hospitalization Condition: Stable Hospital course: Patient is a 44 -year-old woman with a history of COPD, coronary artery disease, CHF, hypertension, seizure, asthma and mitral valve prolapse emergency room who presented with CP. She had a stress test done one month ago which was negative. Also complaining of headache in the temporal to the frontal area which is now better Discharge Diagnoses: Chest pain, atypical, most likely costochrondritis: negative CT heart, Hypertension COPD h/o coronary artery disease h/o CHF, stable h/o seizure, h/o asthma h/o mitral valve prolapse Disposition: DC-01 TO HOME OR SELFCARE Time spent for discharge: 36 minutes Core Measure Documentation - Palliative Care Palliative Care/ Comfort Measures: Not Applicable - Core Measures Any of the following diagnoses?: none - VTE Discharge Requirements Deep Vein Thrombosis/Pulmonary Embolism Present on Admission: No Has pt received <5 days of overlap therapy or INR<2.0: No Anticoagulant overlap therapy prescribed at discharge: No Contraindication No Overlap Therapy order at DC: Not Indicated Exam - Physical Exam Narrative exam: Gen: WDWN, NAD, Awake, Alert, Orientated HEENT: NCAT, EOMI, PERRL, OP Clear Neck: supple, no adenopathy, no thyromegaly, no JVD CVS/Heart: RRR, normal S1S2, pulses present bilaterally Chest/Lungs: CTA B, Symmetrical chest expansion, good air entry bilaterally, reproducible chest wall tenderness GI/Abdomen: soft, NTND, good bowel sounds, no guarding or rebound /Bladder: no suprapubic tenderness, no CVA or paraspinal tenderness Extermity/Skin: no c/c/e, no obvious rash MSK: FROM x 4 Neuro: CN 2-12 grossly intact, no new focal deficits Psych: calm - Constitutional Vitals: Temp Pulse Resp BP Pulse Ox 98.3 F 80 18 137/70 93 04/27/19 11:36 04/27/19 11:36 04/27/19 11:36 04/27/19 11:36 04/27/19 11:36 Plan Activity: other (no strenous activity unless cleared by pcp) Diet: low salt Follow up with: CARLOS LING MD [Staff Physician] - 7 Days PRIMARY CARE, [Primary Care Provider] - 3-5 Days
== END 2019-04-27 14:05 | disposition home or self-care (01) ==
LOC: ED 00:37 → 4A 04:22
PROVIDERS: ADMIT Internal Medicine; ATTEND Internal Medicine
DX: R07.89 Other chest pain (principal); J44.9 Chronic obstructive pulmonary disease, unspecified; I11.0 Hypertensive heart disease with heart failure; I50.9 Heart failure, unspecified; I25.10 Atherosclerotic heart disease of native coronary artery without angina pectoris; R56.9 Unspecified convulsions; I34.1 Nonrheumatic mitral (valve) prolapse; Z98.891 History of uterine scar from previous surgery; Z79.82 Long term (current) use of aspirin
CPT/HCPCS: 36415; 70450; 71045; 75574; 80048; 84484; 84703; 85025; 85379; 93005; 93010; 94640; 96372; 96374; 96375; G0378; J1650; J2270; J2405; Q9967; 99285

== ENCOUNTER 2020-09-22 20:11 | Emergency (ER) | payer MEDICARE, MEDICAID ==
[2020-09-22] MEDS ORDERED: HYDROcodone/ACETAMINOPHEN 5-325 MG TAB PO ONE (21:38)
--- NOTE | 2020-09-22 22:07 | XRay Report ---
Left foot 3 views INDICATION: Lateral heel pain FINDINGS: MTP joints appear intact. Mild degenerative change. Calcaneal spurring is identified. No di splaced fractures seen. IMPRESSION: Degenerative change within the foot with calcaneal spurring noted. No displaced fracture of the calca neus is definitely seen. Left ankle 3 views INDICATION: Pain FINDINGS: Calcaneal spurring is noted. Talar dome appears intact. Mild diffuse swelling in the medial and lateral ankle. Swelling the lateral foot is also noted. Signer Name: Ludin Howell MD Signed: 09/22/2020 10:03 PM Workstation Name: [id number]
[2020-09-22 22:29] VITALS: BP 165/71
--- NOTE | 2020-09-22 22:30 | Emergency Department Report ---
ED Lower Extremity HPI - General Chief Complaint: Fall Stated Complaint: FALL;ANKLE INJURY Time Seen by Provider: 09/22/20 21:37 Source: patient Mode of arrival: Wheelchair Limitations: Physical Limitation - History of Present Illness Initial Comments: Patient is a 45-year-old female presents emergency room with complaints of a left ankle injury that occurred last night. Patient states that she missed a step and accidentally fell down 3 or 4 steps inside the house. She denies any chest pain or dizziness prior to the fall. She states that she had a inversion injury of her ankle. She states since then she has had left ankle and left heel pain and swelling. She denies ever injuring the past. She states that she has been ambulatory with pain. She denies any numbness or weakness. She still able to move the toes. She denies any allergies to medications. PMHx Hypertension, COPD, coronary artery disease, CHF, seizure, asthma, mitral valve prolapse. - Related Data Home Medications Medication Instructions Recorded Confirmed Last Taken Furosemide [Lasix TAB] 20 mg PO QDAY 10/01/15 04/26/19 2 Days Ago ~07/14/18 Potassium Chloride [K-Dur] 10 meq PO QDAY 10/01/15 04/26/19 2 Days Ago ~07/14/18 Previous Rx's Medication Instructions Recorded Last Taken Type Hydrocortisone [Anucort-HC SUPPOS] 25 mg [place] Q12H PRN #1 unit 02/25/18 Unknown Rx Albuterol Sulfate [Ventolin HFA] 2 puff IH Q4H PRN #1 hfa.aer.ad 07/17/18 Unknown Rx Arformoterol Nebu [Brovana Nebu] 15 mcg IH Q12HRT #20 ml 07/17/18 Unknown Rx Aspirin 325 mg PO QDAY #100 tablet 07/17/18 Unknown Rx Diltiazem HCl [Diltiazem 24Hr ER] 240 mg PO DAILY #30 cap.sa.24h 07/17/18 Unknown Rx Fluticasone/Salmeterol [Advair 1 puff INHALATION BID #1 blst.w.dev 07/17/18 Unknown Rx Diskus 250-50 mcg] Rizatriptan Benzoate [Maxalt] 5 mg PO DAILY PRN #9 07/17/18 Unknown Rx Venlafaxine Xr (Nf) 37.5 mg PO QHS #30 07/17/18 Unknown Rx busPIRone [Buspar] 10 mg PO TID #90 tablet 07/17/18 Unknown Rx Acetaminophen/Codeine [Tylenol 1 tab PO Q6H PRN #10 tab 09/22/20 Unknown Rx /Codeine # 3 tab] Naproxen [EC-Naprosyn] 500 mg PO BID PRN #20 tablet. 09/22/20 Unknown Rx Allergies Allergy/AdvReac Type Severity Reaction Status Date / Time phenobarbital AdvReac Unknown Verified 04/03/15 13:33 phenytoin sodium AdvReac Unknown Verified 04/03/15 13:33 [From Dilantin] phenytoin sodium extended AdvReac Unknown Verified 04/03/15 13:33 [From Dilantin] pseudoephedrine HCl AdvReac Unknown Verified 04/03/15 13:33 [From Sudafed] sulfamethoxazole AdvReac Unknown Verified 04/03/15 13:33 [From Bactrim] trimethoprim [From Bactrim] AdvReac Unknown Verified 04/03/15 13:33 triprolidine HCl AdvReac Unknown Verified 04/03/15 13:33 [From Actifed] ED Review of Systems ROS: Stated complaint: FALL;ANKLE INJURY Other details as noted in HPI Comment: All other systems reviewed and negative ED Past Medical Hx - Past Medical History Hx Hypertension: Yes Hx Heart Attack/AMI: No Hx Congestive Heart Failure: Yes Hx Diabetes: No Hx Renal Disease: No Hx Headaches / Migraines: Yes Hx Seizures: Yes (No on meds.) Hx Asthma: No Hx COPD: Yes Additional medical history: MVP, Told she had a blood clot in the past but doesn't know where, States she has had cardiac arrest and had to be shocked in the past. Gallbladder disease. - Surgical History Hx Coronary Stent: No Hx Pacemaker: No Additional Surgical History: X 3. cardiaC cath X 2 - Social History Smoking Status: Never Smoker Substance Use Type: None - Medications Home Medications: Home Medications Medication Instructions Recorded Confirmed Last Taken Type Furosemide [Lasix TAB] 20 mg PO QDAY 10/01/15 04/26/19 2 Days Ago History ~07/14/18 Potassium Chloride [K-Dur] 10 meq PO QDAY 10/01/15 04/26/19 2 Days Ago History ~07/14/18 Hydrocortisone [Anucort-HC SUPPOS] 25 mg [place] Q12H PRN #1 unit 02/25/18 04/26/19 Unknown Rx Albuterol Sulfate [Ventolin HFA] 2 puff IH Q4H PRN #1 hfa.aer.ad 07/17/18 04/26/19 Unknown Rx Arformoterol Nebu [Brovana Nebu] 15 mcg IH Q12HRT #20 ml 07/17/18 04/26/19 Unknown Rx Aspirin 325 mg PO QDAY #100 tablet 07/17/18 04/26/19 Unknown Rx Diltiazem HCl [Diltiazem 24Hr ER] 240 mg PO DAILY #30 cap.sa.24h 07/17/18 04/26/19 Unknown Rx Fluticasone/Salmeterol [Advair 1 puff INHALATION BID #1 blst.w.dev 07/17/18 04/26/19 Unknown Rx Diskus 250-50 mcg] Rizatriptan Benzoate [Maxalt] 5 mg PO DAILY PRN #9 07/17/18 04/26/19 Unknown Rx Venlafaxine Xr (Nf) 37.5 mg PO QHS #30 07/17/18 04/26/19 Unknown Rx busPIRone [Buspar] 10 mg PO TID #90 tablet 07/17/18 04/26/19 Unknown Rx Acetaminophen/Codeine [Tylenol 1 tab PO Q6H PRN #10 tab 09/22/20 Unknown Rx /Codeine # 3 tab] Naproxen [EC-Naprosyn] 500 mg PO BID PRN #20 tablet. 09/22/20 Unknown Rx ED Physical Exam - General Limitations: Physical Limitation General appearance: alert, in no apparent distress - Head Head exam: Present: atraumatic, normocephalic - Eye Eye exam: Present: normal appearance - ENT ENT exam: Present: mucous membranes moist - Respiratory Respiratory exam: Absent: respiratory distress, accessory muscle use - Extremities Exam Extremities exam: Present: other (edema and ttp to the left lateral malleolus, ttp to the left posterior heel, FROM of the LLE, pain with flexion of the left ankle, achilles tendon appears intact, no obvious deformity, neurovascularly intact with strong distal pulses) - Neurological Exam Neurological exam: Present: alert, oriented X3 - Psychiatric Psychiatric exam: Present: normal affect, normal mood - Skin Skin exam: Present: warm, dry, intact ED Course Vital Signs 09/22/20 09/22/20 21:30 22:32 Temperature 98.3 F Pulse Rate 76 Respiratory 12 20 Rate Blood Pressure 165/71 O2 Sat by Pulse 98 Oximetry ED Lower Extremity MDM - Radiology Data Radiology results: report reviewed Ordering Physician: JOSEP PARK Date of Service: 09/22/20 Procedure(s): XR foot 3+V LT Accession Number(s): [id number] cc: JOSEP PARK Fluoro Time In Minutes: Left foot 3 views INDICATION: Lateral heel pain FINDINGS: MTP joints appear intact. Mild degenerative change. Calcaneal spurring is identified. No displaced fractures seen. IMPRESSION: Degenerative change within the foot with calcaneal spurring noted. No displaced fracture of the calcaneus is definitely seen. Left ankle 3 views INDICATION: Pain FINDINGS: Calcaneal spurring is noted. Talar dome appears intact. Mild diffuse swelling in the medial and lateral ankle. Swelling the lateral foot is also noted. Signer Name: Ludin Howell MD Signed: 09/22/2020 10:03 PM Workstation Name: [id number] Transcribed By: CW Dictated By: JAQUELIN HOWELL MD Electronically Authenticated By: JAQUELIN HOWELL MD Signed Date/Time: 09/22/202202 DD/ 01 TD/TT: - Medical Decision Making Patient is a 45-year-old female presents emergency room with complaints of a left ankle injury that occurred last night. Patient states that she missed a step and accidentally fell down 3 or 4 steps inside the house. She denies any chest pain or dizziness prior to the fall. She states that she had a inversion injury of her ankle. She states since then she has had left ankle and left heel pain and swelling. She denies ever injuring the past. She states that she has been ambulatory with pain. She denies any numbness or weakness. She still able to move the toes. She denies any allergies to medications. PMHx Hypertension, COPD, coronary artery disease, CHF, seizure, asthma, mitral valve prolapse. VSS. on exam: edema and ttp to the left lateral malleolus, ttp to the left posterior heel, FROM of the LLE, pain with flexion of the left ankle, achilles tendon appears intact, no obvious deformity, neurovascularly intact with strong distal pulses. XR left ankle and foot: Degenerative change within the foot with calcaneal spurring noted. No displaced fracture of the calcaneus is definitely seen. Calcaneal spurring is noted. Talar dome appears intact. Mild diffuse swelling in the medial and lateral ankle. Swelling the lateral foot is also noted. Patient placed in short leg posterior splint and given crutches. Discussed all results with patient. Discussed the importance of orthopedic follow-up and to not bear weight on the leg. Patient given pain medication while in the emergency department as she did not drive. Patient given prescription for Tylenol with codeine and naproxen. Advised patient Please take medication as prescribed as needed. Do not drive or operate machinery while taking severe pain medication. Please do not bear weight on the leg until you have been cleared by orthopedic doctor. Follow-up with orthopedic doctor. Elevate the leg. Return to emergency room for any new or worsening symptoms. - Differential Diagnosis Strain, sprain, fracture, dislocation, contusion, tendinitis Critical care attestation.: If time is entered above; I have spent that time in minutes in the direct care of this critically ill patient, excluding procedure time. ED Disposition Clinical Impression: Pain of left heel Left ankle pain Qualifiers: Chronicity: acute Qualified Code(s): M25.572 - Pain in left ankle and joints of left foot Disposition: DC-01 TO HOME OR SELFCARE Is pt being admited?: No Does the pt Need Aspirin: No Condition: Stable Instructions: Heel Spur, Ankle Sprain Additional Instructions: Please take medication as prescribed as needed. Do not drive or operate machinery while taking severe pain medication. Please do not bear weight on the leg until you have been cleared by orthopedic doctor. Follow-up with orthopedic doctor. Elevate the leg. Return to emergency room for any new or worsening symptoms. Prescriptions: Naproxen [EC-Naprosyn] 500 mg PO BID PRN #20 tablet.dr CONDE Reason: Pain, Moderate (4-6) Acetaminophen/Codeine [Tylenol /Codeine # 3 tab] 1 tab PO Q6H PRN #10 tab PRN Reason: Pain , Severe (7-10) Referrals: PRIMARY CARE, [Primary Care Provider] - 2-3 Days MAI EISENBERG MD [Staff Physician] - 2-3 Days [facility] [Provider Group] - 2-3 Days Time of Disposition: 22:32 Print Language: ANGUILLAN
== END 2020-09-22 23:20 | disposition home or self-care (01) ==
LOC: ED 20:11
DX: M25.572 Pain in left ankle and joints of left foot (principal); I11.0 Hypertensive heart disease with heart failure; I50.9 Heart failure, unspecified; G43.909 Migraine, unspecified, not intractable, without status migrainosus; R56.9 Unspecified convulsions; J44.9 Chronic obstructive pulmonary disease, unspecified; Z98.890 Other specified postprocedural states; Z79.899 Other long term (current) drug therapy; Z88.8 Allergy status to other drugs, medicaments and biological substances

== ENCOUNTER 2020-10-28 19:36 | Emergency (ER) | payer MEDICARE, MEDICAID ==
[2020-10-28] MEDS ORDERED: SODIUM CHLORIDE IRRI 500 ML 500 ML IR ONE (21:28)
[2020-10-28] MEDS ORDERED: TETANUS,DIPH,PERTUSS(ACELL) VACCINE 0.5 ML SYRINGE IM ONE (21:51)
[2020-10-28] MEDS ORDERED: HYDROcodone/ACETAMINOPHEN 5-325 MG TAB PO ONE (21:51)
--- NOTE | 2020-10-28 22:20 | Emergency Department Report ---
ED Lower Extremity HPI - General Chief Complaint: Extremity Injury, Lower Stated Complaint: FOOT INJURY Time Seen by Provider: 10/28/20 21:32 Source: patient Mode of arrival: Ambulatory Limitations: No Limitations - History of Present Illness Initial Comments: 45-year-old female was out in the ER taking care of a few things when she took her shoe off she accidentally stepped on down on a nail onto her right heel and also the right ball of her foot resulting in pain and swelling she was able to pull the nail out of her heel and and reports she had a little trouble taking out of the ball of the foot but after doing so reports having some dull throbbing pain reports no fever, chills, sweats, no numbness no tingling. MD Complaint: foot injury -: Gradual Injury: Foot: Right Type of Injury: puncture wound Place: home Severity: mild, moderate Improves With: nothing Worsens With: weight bearing, palpation Context: walking Associated Symptoms: able to partially bear weight. denies: numbness, tingling - Related Data Home Medications Medication Instructions Recorded Confirmed Last Taken Furosemide [Lasix TAB] 20 mg PO QDAY 10/01/15 04/26/19 2 Days Ago ~07/14/18 Potassium Chloride [K-Dur] 10 meq PO QDAY 10/01/15 04/26/19 2 Days Ago ~07/14/18 Previous Rx's Medication Instructions Recorded Last Taken Type Hydrocortisone [Anucort-HC SUPPOS] 25 mg ID Q12H PRN #1 unit 02/25/18 Unknown Rx Albuterol Sulfate [Ventolin HFA] 2 puff IH Q4H PRN #1 hfa.aer.ad 07/17/18 Unknown Rx Arformoterol Nebu [Brovana Nebu] 15 mcg IH Q12HRT #20 ml 07/17/18 Unknown Rx Aspirin 325 mg PO QDAY #100 tablet 07/17/18 Unknown Rx Diltiazem HCl [Diltiazem 24Hr ER] 240 mg PO DAILY #30 cap.sa.24h 07/17/18 Unknown Rx Fluticasone/Salmeterol [Advair 1 puff INHALATION BID #1 blst.w.dev 07/17/18 Unknown Rx Diskus 250-50 mcg] Rizatriptan Benzoate [Maxalt] 5 mg PO DAILY PRN #9 07/17/18 Unknown Rx Venlafaxine Xr (Nf) 37.5 mg PO QHS #30 07/17/18 Unknown Rx busPIRone [Buspar] 10 mg PO TID #90 tablet 07/17/18 Unknown Rx Acetaminophen/Codeine [Tylenol 1 tab PO Q6H PRN #10 tab 09/22/20 Unknown Rx /Codeine # 3 tab] Naproxen [EC-Naprosyn] 500 mg PO BID PRN #20 tablet.dr 09/22/20 Unknown Rx Chlorhexidine Gluconate [Hibiclens] 10 ml TP BID #240 liquid 10/28/20 Unknown Rx Ketorolac [Toradol] 10 mg PO Q6H PRN #15 tablet 10/28/20 Unknown Rx cephALEXin [Keflex] 500 mg PO Q8HR #21 cap 10/28/20 Unknown Rx Allergies Allergy/AdvReac Type Severity Reaction Status Date / Time phenobarbital AdvReac Unknown Verified 04/03/15 13:33 phenytoin sodium AdvReac Unknown Verified 04/03/15 13:33 [From Dilantin] phenytoin sodium extended AdvReac Unknown Verified 04/03/15 13:33 [From Dilantin] pseudoephedrine HCl AdvReac Unknown Verified 04/03/15 13:33 [From Sudafed] sulfamethoxazole AdvReac Unknown Verified 04/03/15 13:33 [From Bactrim] trimethoprim [From Bactrim] AdvReac Unknown Verified 04/03/15 13:33 triprolidine HCl AdvReac Unknown Verified 04/03/15 13:33 [From Actifed] ED Review of Systems ROS: Stated complaint: FOOT INJURY Other details as noted in HPI Comment: All other systems reviewed and negative ED Past Medical Hx - Past Medical History Previous Medical History?: Yes Hx Hypertension: Yes Hx Heart Attack/AMI: No Hx Congestive Heart Failure: Yes Hx Diabetes: No Hx Renal Disease: No Hx Headaches / Migraines: Yes Hx Seizures: Yes (No on meds.) Hx Asthma: No Hx COPD: Yes Additional medical history: MVP, Told she had a blood clot in the past but doesn't know where, States she has had cardiac arrest and had to be shocked in the past. Gallbladder disease. - Surgical History Past Surgical History?: Yes Hx Coronary Stent: No Hx Pacemaker: No Additional Surgical History: X 3. cardiaC cath X 2 - Social History Smoking Status: Never Smoker Substance Use Type: None - Medications Home Medications: Home Medications Medication Instructions Recorded Confirmed Last Taken Type Furosemide [Lasix TAB] 20 mg PO QDAY 10/01/15 04/26/19 2 Days Ago History ~07/14/18 Potassium Chloride [K-Dur] 10 meq PO QDAY 10/01/15 04/26/19 2 Days Ago History ~07/14/18 Hydrocortisone [Anucort-HC SUPPOS] 25 mg ID Q12H PRN #1 unit 02/25/18 04/26/19 Unknown Rx Albuterol Sulfate [Ventolin HFA] 2 puff IH Q4H PRN #1 hfa.aer.ad 07/17/18 04/26/19 Unknown Rx Arformoterol Nebu [Brovana Nebu] 15 mcg IH Q12HRT #20 ml 07/17/18 04/26/19 Unknown Rx Aspirin 325 mg PO QDAY #100 tablet 07/17/18 04/26/19 Unknown Rx Diltiazem HCl [Diltiazem 24Hr ER] 240 mg PO DAILY #30 cap.sa.24h 07/17/18 04/26/19 Unknown Rx Fluticasone/Salmeterol [Advair 1 puff INHALATION BID #1 blst.w.dev 07/17/18 04/26/19 Unknown Rx Diskus 250-50 mcg] Rizatriptan Benzoate [Maxalt] 5 mg PO DAILY PRN #9 07/17/18 04/26/19 Unknown Rx Venlafaxine Xr (Nf) 37.5 mg PO QHS #30 07/17/18 04/26/19 Unknown Rx busPIRone [Buspar] 10 mg PO TID #90 tablet 07/17/18 04/26/19 Unknown Rx Acetaminophen/Codeine [Tylenol 1 tab PO Q6H PRN #10 tab 09/22/20 Unknown Rx /Codeine # 3 tab] Naproxen [EC-Naprosyn] 500 mg PO BID PRN #20 tablet. 09/22/20 Unknown Rx Chlorhexidine Gluconate [Hibiclens] 10 ml TP BID #240 liquid 10/28/20 Unknown Rx Ketorolac [Toradol] 10 mg PO Q6H PRN #15 tablet 10/28/20 Unknown Rx cephALEXin [Keflex] 500 mg PO Q8HR #21 cap 10/28/20 Unknown Rx ED Physical Exam - General Limitations: No Limitations General appearance: alert, in no apparent distress - Head Head exam: Present: atraumatic, normocephalic - Eye Eye exam: Present: normal appearance, PERRL, EOMI Pupils: Present: normal accommodation - ENT ENT exam: Present: normal exam, normal orophraynx, mucous membranes moist, TM's normal bilaterally - Neck Neck exam: Present: normal inspection, full ROM - Respiratory Respiratory exam: Present: normal lung sounds bilaterally. Absent: respiratory distress, wheezes, rales, rhonchi, chest wall tenderness, accessory muscle use - Cardiovascular Cardiovascular Exam: Present: regular rate, normal rhythm. Absent: systolic murmur, diastolic murmur, rubs, gallop - GI/Abdominal GI/Abdominal exam: Present: soft, normal bowel sounds - Extremities Exam Extremities exam: Present: normal inspection - Expanded Lower Extremity Exam Right Foot/Toe exam: Present: tenderness (Has a puncture wound to the right heel into the right ball of foot. No skin tear. No retained foreign body seen.) Neuro vascular tendon exam: Present: no vascular compromise - Back Exam Back exam: Present: normal inspection - Neurological Exam Neurological exam: Present: alert, oriented X3 - Psychiatric Psychiatric exam: Present: normal affect, normal mood - Skin Skin exam: Present: warm, dry, intact, normal color. Absent: rash ED Course Vital Signs 10/28/20 20:50 Temperature 98.1 F Pulse Rate 92 H Respiratory 17 Rate Blood Pressure 142/88 O2 Sat by Pulse 97 Oximetry ED Lower Extremity MDM - Radiology Data Radiology results: report reviewed [facility] [address] [place] [address] XRay Report Signed Patient: VERONICA GUZMAN MR#: [id number] : 1975 Acct:[id number] Age/Sex: 45 / F ADM Date: 10/28/20 Loc: ED Attending Dr: Ordering Physician: JOSEP MILLER Date of Service: 10/28/20 Procedure(s): XR foot 3+V RT Accession Number(s): [id number] cc: JOSEP MILLER Fluoro Time In Minutes: RIGHT FOOT 3 VIEWS INDICATION / CLINICAL INFORMATION: [puncturte wound foot. COMPARISON: None available. FINDINGS: No fracture or other skeletal abnormality. History is noted; I see no ra diopaque foreign body. Signer Name: Jesus Chase MD Signed: 10/28/2020 10:48 PM Workstation Name: [id number] Transcribed By: TM Dictated By: Jesus Chase MD Electronically Authenticated By: Jesus Chase MD Signed Date/Time: 10/28/202247 DD/ 46 TD/TT: Critical care attestation.: If time is entered above; I have spent that time in minutes in the direct care of this critically ill patient, excluding procedure time. ED Disposition Clinical Impression: Puncture wound of foot Disposition: DC-01 TO HOME OR SELFCARE Is pt being admited?: No Does the pt Need Aspirin: No Condition: Stable Instructions: Puncture Wound, Wound Care, Adult Prescriptions: Chlorhexidine Gluconate [Hibiclens] 10 ml TP BID #240 liquid cephALEXin [Keflex] 500 mg PO Q8HR #21 cap Ketorolac [Toradol] 10 mg PO Q6H PRN #15 tablet PRN Reason: Pain Referrals: PRIMARY CARE, [Primary Care Provider] - 3-5 Days [facility] [Provider Group] - 3-5 Days
--- NOTE | 2020-10-28 22:52 | XRay Report ---
RIGHT FOOT 3 VIEWS INDICATION / CLINICAL INFORMATION: [puncturte wound foot. COMPARISON: None available. FINDINGS: No fracture or other skeletal abnormality. History is noted; I see no radiopaque foreign body. Signer Name: Jesus Chase MD Signed: 10/28/2020 10:48 PM Workstation Name: [id number]
[2020-10-29 03:28] VITALS: BP 136/82
== END 2020-10-28 23:16 | disposition home or self-care (01) ==
LOC: ED 19:36
DX: S91.331A Puncture wound without foreign body, right foot, initial encounter (principal); I11.0 Hypertensive heart disease with heart failure; I50.9 Heart failure, unspecified; G43.909 Migraine, unspecified, not intractable, without status migrainosus; R56.9 Unspecified convulsions; J44.9 Chronic obstructive pulmonary disease, unspecified; Z98.890 Other specified postprocedural states; Z79.899 Other long term (current) drug therapy; Z88.8 Allergy status to other drugs, medicaments and biological substances; W22.8XXA Striking against or struck by other objects, initial encounter; Y93.89 Activity, other specified; Y92.89 Other specified places as the place of occurrence of the external cause; Y99.8 Other external cause status
CPT/HCPCS: 90471; 90715

== ENCOUNTER 2020-12-02 00:23 | Observation (INO) | payer MEDICARE ==
--- NOTE | 2020-12-02 00:41 | Emergency Department Report ---
ED Chest Pain HPI - General Stated Complaint: CHEST PAIN Time Seen by Provider: 12/02/20 00:28 - History of Present Illness Initial Comments: This is a 45-year-old female presents to the emergency department via EMS from home with complaint of a 3-day history of intermittent chest pains and shortness of breath. The chest pain has been midsternal and left-sided and occasionally has been radiating towards the left shoulder. At one point the patient describes the pain as "going into my lungs" and "it is like something burst and opened up inside of me." Although the pain has been intermittent, it became more frequent and more intense this evening. She called the office of her collar baster, Dr. Greenfield, and was told to come to the emergency department. The patient took her daily medications, which includes aspirin, but was also given a full dose aspirin and a sublingual nitroglycerin in route with EMS, with some relief. She denies any fever, lower extremity swelling, back pain, nausea, vomiting or diaphoresis. The patient has a past medical history that includes hypertension, COPD not oxygen dependent, CHF, seizures, mitral valve prolapse, previous colon cancer, and coronary artery disease with previous angioplasty. She denies any tobacco or illicit drug use. No recent travel or sick contacts at home. - Related Data Home Medications Medication Instructions Recorded Confirmed Last Taken Furosemide [Lasix TAB] 20 mg PO QDAY 10/01/15 12/02/20 2 Days Ago ~07/14/18 Potassium Chloride [K-Dur] 10 meq PO QDAY 10/01/15 12/02/20 2 Days Ago ~07/14/18 Previous Rx's Medication Instructions Recorded Last Taken Type Albuterol Sulfate [Ventolin HFA] 2 puff IH Q4H PRN #1 hfa.aer.ad 07/17/18 Unknown Rx Arformoterol Nebu [Brovana Nebu] 15 mcg IH Q12HRT #20 ml 07/17/18 Unknown Rx Diltiazem HCl [Diltiazem 24Hr ER] 240 mg PO DAILY #30 cap.sa.24h 07/17/18 Unknown Rx Rizatriptan Benzoate [Maxalt] 5 mg PO DAILY PRN #9 07/17/18 Unknown Rx Venlafaxine Xr (Nf) 37.5 mg PO QHS #30 07/17/18 Unknown Rx busPIRone [Buspar] 10 mg PO TID #90 tablet 07/17/18 Unknown Rx Acetaminophen [8 Hour 650 mg PO Q8HR #15 tablet.er 12/02/20 Unknown Rx Acetaminophen] Pantoprazole [Protonix TAB] 40 mg PO QDAY #30 tablet 12/02/20 Unknown Rx Allergies Allergy/AdvReac Type Severity Reaction Status Date / Time phenobarbital AdvReac Unknown Verified 04/03/15 13:33 phenytoin sodium AdvReac Unknown Verified 04/03/15 13:33 [From Dilantin] phenytoin sodium extended AdvReac Unknown Verified 04/03/15 13:33 [From Dilantin] pseudoephedrine HCl AdvReac Unknown Verified 04/03/15 13:33 [From Sudafed] sulfamethoxazole AdvReac Unknown Verified 04/03/15 13:33 [From Bactrim] trimethoprim [From Bactrim] AdvReac Unknown Verified 04/03/15 13:33 triprolidine HCl AdvReac Unknown Verified 04/03/15 13:33 [From Actifed] Heart Score - HEART Score History: Slightly suspicious EKG: Normal Age: 45-65 Risk factors: > 3 risk factors or hx of atherosclerotic disease Troponin: < normal limit HEART Score: 3 - EKG Read Time Time EKG Completed: 01:05 EKG Read Time: 01:10 ED Review of Systems ROS: Stated complaint: CHEST PAIN Other details as noted in HPI Comment: All other systems reviewed and negative Constitutional: denies: chills, fever Eyes: denies: eye pain, vision change ENT: denies: ear pain, throat pain Respiratory: shortness of breath. denies: cough Cardiovascular: chest pain. denies: palpitations Gastrointestinal: denies: abdominal pain, vomiting Genitourinary: denies: dysuria, discharge Musculoskeletal: denies: back pain, arthralgia Skin: denies: rash, lesions Neurological: denies: headache, weakness ED Past Medical Hx - Past Medical History Hx Hypertension: Yes Hx Heart Attack/AMI: No Hx Congestive Heart Failure: Yes Hx Diabetes: No Hx Renal Disease: No Hx Headaches / Migraines: Yes Hx Seizures: Yes (No on meds.) Hx Asthma: No Hx COPD: Yes Additional medical history: MVP, Told she had a blood clot in the past but doesn't know where, States she has had cardiac arrest and had to be shocked in the past. Gallbladder disease. - Surgical History Hx Coronary Stent: No Hx Pacemaker: No Additional Surgical History: X 3. cardiaC cath X 2 - Social History Smoking Status: Never Smoker Substance Use Type: None - Medications Home Medications: Home Medications Medication Instructions Recorded Confirmed Last Taken Type Furosemide [Lasix TAB] 20 mg PO QDAY 10/01/15 12/02/20 2 Days Ago History ~07/14/18 Potassium Chloride [K-Dur] 10 meq PO QDAY 10/01/15 12/02/20 2 Days Ago History ~07/14/18 Albuterol Sulfate [Ventolin HFA] 2 puff IH Q4H PRN #1 hfa.aer.ad 07/17/18 12/02/20 Unknown Rx Arformoterol Nebu [Brovana Nebu] 15 mcg IH Q12HRT #20 ml 07/17/18 12/02/20 U nknown Rx Diltiazem HCl [Diltiazem 24Hr ER] 240 mg PO DAILY #30 cap.sa.24h 07/17/18 12/02/20 Unknown Rx Rizatriptan Benzoate [Maxalt] 5 mg PO DAILY PRN #9 07/17/18 12/02/20 Unknown Rx Venlafaxine Xr (Nf) 37.5 mg PO QHS #30 07/17/18 12/02/20 Unknown Rx busPIRone [Buspar] 10 mg PO TID #90 tablet 07/17/18 12/02/20 Unknown Rx Acetaminophen [8 Hour 650 mg PO Q8HR #15 tablet.er 12/02/20 Unknown Rx Acetaminophen] Pantoprazole [Protonix TAB] 40 mg PO QDAY #30 tablet 12/02/20 Unknown Rx ED Physical Exam - Other Other exam information: GENERAL: The patient is well-developed well-nourished. HENT: Normocephalic. Atraumatic. Patient has moist mucous membranes. EYES: Extraocular motions are intact. NECK: Supple. Trachea is midline. CHEST/LUNGS: Clear to auscultation. There is no respiratory distress noted. HEART/CARDIOVASCULAR: Regular. There is no tachycardia. There is no murmur. ABDOMEN: Abdomen is soft, nontender. Patient has normal bowel sounds. SKIN: Skin is warm and dry. NEURO: The patient is awake, alert, and oriented. The patient is cooperative. The patient has no focal neurologic deficits. Normal speech. MUSCULOSKELETAL: There is no tenderness or deformity. There is no limitation range of motion. ED Course Vital Signs 12/02/20 12/02/20 12/02/20 00:47 03:26 03:28 Temperature 98.6 F Pulse Rate 80 60 Respiratory 20 20 20 Rate Blood Pressure 151/64 Blood Pressure 142/77 [Right] O2 Sat by Pulse 99 99 99 Oximetry 12/02/20 12/02/20 12/02/20 04:25 05:24 05:34 Temperature 97.8 F Pulse Rate 60 60 Respiratory 20 16 Rate Blood Pressure 141/62 Blood Pressure [Right] O2 Sat by Pulse 95 Oximetry 12/02/20 05:49 Temperature Pulse Rate Respiratory 20 Rate Blood Pressure Blood Pressure [Right] O2 Sat by Pulse Oximetry AMRIT score - Amrit Score Age > 65: (0) No Aspirin use within the Past 7 Days: (1) Yes 3 or more CAD Risk Factors: (1) Yes 2 or more Angina events in past 24 hrs: (1) Yes Known CAD with more than 50% Stenosis: (0) No Elevated Cardiac Markers: (0) No ST Deviation Greater than 0.5mm: (0) No AMRIT Score: 3 ED Medical Decision Making - Lab Data Result diagrams: 12/02/20 06:00 12/02/20 06:00 Lab Results 12/02/20 12/02/20 12/02/20 Range/Units 00:58 00:58 00:58 WBC 9.4 (4.5-11.0) K/mm3 RBC 4.26 (3.65-5.03) M/mm3 Hgb 12.4 (10.1-14.3) gm/dl Hct 37.3 (30.3-42.9) % MCV 88 (79-97) fl MCH 29 (28-32) pg MCHC 33 (30-34) % RDW 13.6 (13.2-15.2) % Plt Count 257 (140-440) K/mm3 Lymph % (Auto) 30.4 (13.4-35.0) % Phillips % (Auto) 9.2 H (0.0-7.3) % Eos % (Auto) 2.7 (0.0-4.3) % Baso % (Auto) 0.5 (0.0-1.8) % Lymph # (Auto) 2.9 (1.2-5.4) K/mm3 Phillips # (Auto) 0.9 H (0.0-0.8) K/mm3 Eos # (Auto) 0.3 (0.0-0.4) K/mm3 Baso # (Auto) 0.0 (0.0-0.1) K/mm3 Seg Neutrophils % 57.2 (40.0-70.0) % Seg Neutrophils # 5.4 (1.8-7.7) K/mm3 D-Dimer 118 (0-234) ng/mlDDU Sodium 140 (137-145) mmol/L Potassium 3.7 (3.6-5.0) mmol/L Chloride 103.2 (98-107) mmol/L Carbon Dioxide 26 (22-30) mmol/L Anion Gap 15 mmol/L BUN 10 (7-17) mg/dL Creatinine 0.5 L (0.6-1.2) mg/dL Estimated GFR > 60 ml/min BUN/Creatinine Ratio 20 % Glucose 120 H (65-100) mg/dL Calcium 8.7 (8.4-10.2) mg/dL Total Bilirubin 0.20 (0.1-1.2) mg/dL AST 22 (5-40) units/L ALT 23 (7-56) units/L Alkaline Phosphatase 152 H (35-129) units/L Troponin T < 0.010 (0.00-0.029) ng/mL Total Protein 6.5 (6.3-8.2) g/dL Albumin 4.0 (3.9-5) g/dL Albumin/Globulin Ratio 1.6 % HCG, Qual (Negative) 12/02/20 Range/Units 00:58 WBC (4.5-11.0) K/mm3 RBC (3.65-5.03) M/mm3 Hgb (10.1-14.3) gm/dl Hct (30.3-42.9) % MCV (79-97) fl MCH (28-32) pg MCHC (30-34) % RDW (13.2-15.2) % Plt Count (140-440) K/mm3 Lymph % (Auto) (13.4-35.0) % Phillips % (Auto) (0.0-7.3) % Eos % (Auto) (0.0-4.3) % Baso % (Auto) (0.0-1.8) % Lymph # (Auto) (1.2-5.4) K/mm3 Phillips # (Auto) (0.0-0.8) K/mm3 Eos # (Auto) (0.0-0.4) K/mm3 Baso # (Auto) (0.0-0.1) K/mm3 Seg Neutrophils % (40.0-70.0) % Seg Neutrophils # (1.8-7.7) K/mm3 D-Dimer (0-234) ng/mlDDU Sodium (137-145) mmol/L Potassium (3.6-5.0) mmol/L Chloride (98-107) mmol/L Carbon Dioxide (22-30) mmol/L Anion Gap mmol/L BUN (7-17) mg/dL Creatinine (0.6-1.2) mg/dL Estimated GFR ml/min BUN/Creatinine Ratio % Glucose (65-100) mg/dL Calcium (8.4-10.2) mg/dL Total Bilirubin (0.1-1.2) mg/dL AST (5-40) units/L ALT (7-56) units/L Alkaline Phosphatase (35-129) units/L Troponin T (0.00-0.029) ng/mL Total Protein (6.3-8.2) g/dL Albumin (3.9-5) g/dL Albumin/Globulin Ratio % HCG, Qual Negative (Negative) - EKG Data -: EKG Interpreted by Sd EKG shows normal: sinus rhythm, axis, intervals, QRS complexes, ST-T waves Rate: normal - EKG Data When compared to previous EKG there are: no significant change Interpretation: normal EKG, unchanged when compared t (04/26/19) - Radiology Data Radiology results: image reviewed interpreted by me: Chest x-ray does not show any acute process. There are no pleural effusions, obvious pneumonia and there is no pneumothorax. No significant cardiomegaly. - Medical Decision Making Patient presents with a 3-day history of progressively worsening midsternal to left-sided chest pain and shortness of breath. EKG did not have any morphology consistent with ST elevation myocardial infarction. Chest x-ray does not show any pneumonia, pleural effusions, pneumothorax, or any acute process. Patient's labs have been unremarkable thus far including CBC, metabolic panel, negative D-dimer, and negative troponin level. However, patient has a moderate heart and AMRIT score. It appears to have been at least 2 years since the patient last had a stress test. Per the patient, she appears to have some history of coronary artery disease with previous angioplasty. For these reasons the patient will be admitted to the hospital for further evaluation and treatment was accepted for admission by the hospitalist, Dr. Bertrand. Critical Care Time: No Critical care attestation.: If time is entered above; I have spent that time in minutes in the direct care of this critically ill patient, excluding procedure time. ED Disposition Clinical Impression: Chest pain Qualifiers: Chest pain type: unspecified Qualified Code(s): R07.9 - Chest pain, unspecified Hypertension Qualifiers: Hypertension type: essential hypertension Qualified Code(s): I10 - Essential (primary) hypertension Disposition: 09 OP ADMIT IP TO THIS HOSP Is pt being admited?: Yes Condition: Fair Time of Disposition: 01:57
[2020-12-02 01:24] LABS: Basophils % (Auto) 0.5 % (0.0-1.8); Eosinophils # (Auto) 0.3 K/mm3 (0.0-0.4); Eosinophils % (Auto) 2.7 % (0.0-4.3); Hematocrit 37.3 % (30.3-42.9); Hemoglobin 12.4 gm/dl (10.1-14.3); Lymphocytes # (Auto) 2.9 K/mm3 (1.2-5.4); Lymphocytes % (Auto) 30.4 % (13.4-35.0); Mean Corpuscular HGB Conc 33 % (30-34); Mean Corpuscular Volume 88 fl (79-97); Monocytes # (Auto) 0.9 K/mm3 (0.0-0.8); Monocytes % (Auto) 9.2 % (0.0-7.3); Platelet Count 257 K/mm3 (140-440); Red Blood Count 4.26 M/mm3 (3.65-5.03); Red Cell Distribution Width 13.6 % (13.2-15.2)
[2020-12-02 01:50] LABS: Alanine Aminotransferase 23 units/L (7-56); Blood Urea Nitrogen 10 mg/dL (7-17); Calcium 8.7 mg/dL (8.4-10.2); Hemolysis Index 10
[2020-12-02 01:54] LABS: BUN/Creatinine Ratio 20
--- NOTE | 2020-12-02 01:55 | XRay Report ---
CHEST 1 VIEW INDICATION / CLINICAL INFORMATION: CP. COMPARISON: Chest radiograph 04/26/2019 FINDINGS: SUPPORT DEVICES: None. HEART / MEDIASTINUM: No significant abnormality. LUNGS / PLEURA: No significant pulmonary or pleural abnormality. No pneumothorax. ADDITIONAL FINDINGS: No significant additional findings. IMPRESSION: 1. No acute findings. Signer Name: Kathi Riley MD Signed: 12/02/2020 1:51 AM Workstation Name: [id number] [id number]
[2020-12-02] MEDS ORDERED: HYDROcodone/ACETAMINOPHEN 5-325 MG TAB PO ONE ×2 (01:57→05:15)
[2020-12-02] MEDS ORDERED: ONDANSETRON 4 MG/2 ML INJ IV PRN (02:19)
[2020-12-02] MEDS ORDERED: MORPHINE 2 MG/1 ML INJ IV PRN (02:19)
[2020-12-02] MEDS ORDERED: MAGNESIUM HYDROXIDE (MOM) ORAL LIQD UDC PO PRN (02:19)
[2020-12-02] MEDS ORDERED: ACETAMINOPHEN 325 MG TAB PO PRN ×2 (02:19)
[2020-12-02] MEDS ORDERED: NITROGLYCERIN 0.4 MG TAB SUBL SL PRN (02:19)
[2020-12-02] MEDS ORDERED: traMADol 50 MG TAB PO PRN (02:19)
--- NOTE | 2020-12-02 02:30 | History and Physical Report ---
History of Present Illness Date of examination: 12/02/20 Date of admission: 12/02/20 01:58 Chief complaint: Chest Pain History of present illness: 45-year-old white female with past medical history of hypertension, COPD, mitral valve prolapse, coronary artery disease with angioplasty presenting to the emergency room today complaining of chest pain which has been ongoing for about 3 days. Chest pain has been intermittent and has been associated with some shortness of breath. Chest pain is midsternal radiating to the left side of her chest and left upper extremity and shoulder. Chest pain felt like pressure. No no relieving or exacerbating factor. She follows up with Dr. Greenfield at [facility]. She had called the senior insight manager office and was encouraged to report to the emergency room. In route to the hospital patient had a full aspirin and sublingual nitroglycerin with some improvement. She cannot recall the last time she had a stress test and echocardiogram. Work-up in the emergency room today including chest x-ray, troponin and EKG has been unremarkable. Patient is being admitted for chest pain evaluation. Past History Past Medical History: COPD, heart failure, hypertension, migraines, seizures (Not on medications) Past Surgical History: (x3), Other (Cardiac Cathx2) Social history: no significant social history Medications and Allergies Allergies Allergy/AdvReac Type Severity Reaction Status Date / Time phenobarbital AdvReac Unknown Verified 04/03/15 13:33 phenytoin sodium AdvReac Unknown Verified 04/03/15 13:33 [From Dilantin] phenytoin sodium extended AdvReac Unknown Verified 04/03/15 13:33 [From Dilantin] pseudoephedrine HCl AdvReac Unknown Verified 04/03/15 13:33 [From Sudafed] sulfamethoxazole AdvReac Unknown Verified 04/03/15 13:33 [From Bactrim] trimethoprim [From Bactrim] AdvReac Unknown Verified 04/03/15 13:33 triprolidine HCl AdvReac Unknown Verified 04/03/15 13:33 [From Actifed] Home Medications Medication Instructions Recorded Confirmed Last Taken Type Furosemide [Lasix TAB] 20 mg PO QDAY 10/01/15 04/26/19 2 Days Ago History ~07/14/18 Potassium Chloride [K-Dur] 10 meq PO QDAY 10/01/15 04/26/19 2 Days Ago History ~07/14/18 Hydrocortisone [Anucort-HC SUPPOS] 25 mg SD Q12H PRN #1 unit 02/25/18 04/26/19 Unknown Rx Albuterol Sulfate [Ventolin HFA] 2 puff IH Q4H PRN #1 hfa.aer.ad 07/17/18 04/26/19 Unknown Rx Arformoterol Nebu [Brovana Nebu] 15 mcg IH Q12HRT #20 ml 07/17/18 04/26/19 Unknown Rx Aspirin 325 mg PO QDAY #100 tablet 07/17/18 04/26/19 Unknown Rx Diltiazem HCl [Diltiazem 24Hr ER] 240 mg PO DAILY #30 cap.sa.24h 07/17/18 04/26/19 Unknown Rx Fluticasone/Salmeterol [Advair 1 puff INHALATION BID #1 blst.w.dev 07/17/18 04/26/19 Unknown Rx Diskus 250-50 mcg] Rizatriptan Benzoate [Maxalt] 5 mg PO DAILY PRN #9 07/17/18 04/26/19 Unknown Rx Venlafaxine Xr (Nf) 37.5 mg PO QHS #30 07/17/18 04/26/19 Unknown Rx busPIRone [Buspar] 10 mg PO TID #90 tablet 07/17/18 04/26/19 Unknown Rx Acetaminophen/Codeine [Tylenol 1 tab PO Q6H PRN #10 tab 09/22/20 Unknown Rx /Codeine # 3 tab] Naproxen [EC-Naprosyn] 500 mg PO BID PRN #20 tablet. 09/22/20 Unknown Rx Chlorhexidine Gluconate [Hibiclens] 10 ml TP BID #240 liquid 10/28/20 Unknown Rx Ketorolac [Toradol] 10 mg PO Q6H PRN #15 tablet 10/28/20 Unknown Rx cephALEXin [Keflex] 500 mg PO Q8HR #21 cap 10/28/20 Unknown Rx Review of Systems Constitutional: no fever, no chills Ears, nose, mouth and throat: no nasal congestion, no sore throat Cardiovascular: chest pain, no palpitations Respiratory: no cough, no shortness of breath Gastrointestinal: no abdominal pain, no nausea, no vomiting, no diarrhea Genitourinary Female: no pelvic pain, no flank pain, no dysuria, no hematuria Musculoskeletal: no neck pain, no low back pain Integumentary: no rash, no pruritis Neurological: no headaches, no confusion Psychiatric: no anxiety, no depression Endocrine: no polyphagia, no polydipsia, no polyuria, no nocturia Exam - Constitutional Vitals: Temp Pulse Resp BP Pulse Ox 98.6 F 80 20 151/64 99 12/02/20 00:47 12/02/20 00:47 12/02/20 00:47 12/02/20 00:47 12/02/20 00:47 General appearance: Present: no acute distress, well-nourished - EENT Eyes: Present: PERRL, EOM intact. Absent: scleral icterus ENT: hearing intact, clear oral mucosa, dentition normal - Neck Neck: Present: supple, normal ROM - Respiratory Respiratory effort: normal Respiratory: bilateral: CTA - Cardiovascular Rhythm: regular Heart Sounds: Present: S1 & S2. Absent: gallop, systolic murmur, diastolic murmur, rub, click - Extremities Extremities: no ischemia, pulses intact, pulses symmetrical, No edema, normal temperature, normal color, Full ROM Peripheral Pulses: within normal limits - Abdominal General gastrointestinal: Present: soft, non-tender, non-distended, normal bowel sounds. Absent: mass - Integumentary Integumentary: Present: clear, warm, dry. Absent: rash - Musculoskeletal Musculoskeletal: strength equal bilaterally - Psychiatric Psychiatric: appropriate mood/affect, intact judgment & insight, memory intact, cooperative - Neurologic Neurologic: CNII-XII intact, no focal deficits, moves all extremities HEART Score - HEART Score History: Moderately suspicious EKG: Normal Age: 45-65 Risk factors: > 3 risk factors or hx of atherosclerotic disease Troponin: Troponin T < 0.010 ng/mL (0.00-0.029) 12/02/20 00:58 Troponin: < normal limit HEART Score: 4 Results - Labs CBC & Chem 7: 12/02/20 00:58 12/02/20 00:58 Labs: Abnormal lab results 12/02/20 12/02/20 Range/Units 00:58 00:58 [place] % (Auto) 9.2 H (0.0-7.3) % [place] # (Auto) 0.9 H (0.0-0.8) K/mm3 Creatinine 0.5 L (0.6-1.2) mg/dL Glucose 120 H (65-100) mg/dL Alkaline Phosphatase 152 H (35-129) units/L Assessment and Plan - Patient Problems (1) Chest pain Current Visit: Yes Status: Acute Qualifiers: Chest pain type: unspecified Qualified Code(s): R07.9 - Chest pain, unspecified Plan to address problem: Patient admitted to telemetry. We will check serial cardiac enzymes. Patient will be scheduled for stress test and echocardiogram. Consult placed to cardiology for follow-up. (2) Hypertension Current Visit: Yes Status: Acute Qualifiers: Hypertension type: essential hypertension Qualified Code(s): I10 - Essential (primary) hypertension Plan to address problem: We will resume routine home medications and monitor vital signs closely. (3) DVT prophylaxis Current Visit: Yes Status: Acute Plan to address problem: Patient placed on subcutaneous heparin. (4) Full code status Current Visit: Yes Status: Acute Plan to address problem: Patient is a full code.
[2020-12-02 06:34] LABS: Basophils # (Auto) 0.1 K/mm3 (0.0-0.1); Basophils % (Auto) 0.5 % (0.0-1.8); Eosinophils # (Auto) 0.3 K/mm3 (0.0-0.4); Eosinophils % (Auto) 2.8 % (0.0-4.3); Hematocrit 37.6 % (30.3-42.9); Hemoglobin 12.2 gm/dl (10.1-14.3); Lymphocytes # (Auto) 3.8 K/mm3 (1.2-5.4); Lymphocytes % (Auto) 39.9 % (13.4-35.0); Mean Corpuscular HGB Conc 32 % (30-34); Mean Corpuscular Volume 88 fl (79-97); Monocytes # (Auto) 0.9 K/mm3 (0.0-0.8); Platelet Count 253 K/mm3 (140-440); Red Blood Count 4.28 M/mm3 (3.65-5.03); Red Cell Distribution Width 13.8 % (13.2-15.2)
[2020-12-02] MEDS: HEPARIN 5,000 UNIT/1 ML VIAL SUB-Q SCH ×2 (06:40→14:38)
[2020-12-02 06:55] LABS: Blood Urea Nitrogen 11 mg/dL (7-17); Calcium 8.7 mg/dL (8.4-10.2); Chol/HDL Ratio 2.34 %; HDL Cholesterol 52 mg/dL (40-59); Hemolysis Index 3; LDL Cholesterol,Direct 55 mg/dL (50-130)
[2020-12-02 07:00] LABS: BUN/Creatinine Ratio 22
[2020-12-02 08:12] VITALS: BP 109/46
--- NOTE | 2020-12-02 10:53 | Discharge Summary ---
Providers - Providers Date of Admission: 12/02/20 01:58 Date of discharge: 12/02/20 Attending physician: KENISHA MOTT 12/02/20 Consult to Cardiac Rehabilitation [CONS] Routine Reason For Exam: Phase I 12/02/20 02:19 Consult to Cardiology [CONS] Routine Consulting Provider: CARLOS LING Reason For Exam: chest pain Primary care physician: INVENTORY CONTROL SUPERVISOR Hospitalization Condition: Fair Hospital course: 45-year-old white female with past medical history of hypertension, COPD, mitral valve prolapse, coronary artery disease with angioplasty presenting to the emergency room today complaining of chest pain which has been ongoing for about 3 days. Chest pain has been intermittent and has been associated with some shor tness of breath. Chest pain is midsternal radiating to the left side of her chest and left upper extremity and shoulder. Chest pain felt like pressure. No no relieving or exacerbating factor. She follows up with Dr. Greenfield at [facility]. She had called the magazine hand office and was encouraged to report to the emergency room. In route to the hospital patient had a full aspirin and sublingual nitroglycerin with some improvement. She cannot recall the last time she had a stress test and echocardiogram. Work-up in the emergency room today including chest x-ray, troponin and EKG has been unremarkable. Patient is being admitted for chest pain evaluation. Hospital course Cardiology cancelled her stress test as she had a negative stress test 3 months ago. Her chest pain is reproducible. It is likely musculoskeletal. She has negative d-dimer which rules out PE. She will continue anti-inflammatory medications and PPI for now and will need to follow up with transmission builder for management of dyspepsia. She agrees with plan Disposition: - TO HOME OR SELFCARE Final Discharge Diagnosis (Prints w/discharge instructions): Chest pain Time spent for discharge: 20 mins Core Measure Documentation - Palliative Care Palliative Care/ Comfort Measures: Not Applicable - Core Measures Any of the following diagnoses?: none Exam - Physical Exam Narrative exam: VITAL SIGNS: Reviewed. GENERAL: Awake HEAD: No signs of head trauma. EYES: Pupils are equal. Extraocular motions intact. MOUTH: Oropharynx is normal. NECK: No adenopathy, no JVD. CHEST: Chest with diminished breath sounds bilaterally. No wheezes, rales, or rhonchi. CARDIAC: normal S1 and S2, without murmurs, gallops, or rubs. ABDOMEN: Soft, non tender and non distended. No rebound or guarding, and no masses palpated. Bowel Sounds normal. MUSCULOSKELETAL: No edema NEUROLOGIC EXAM: Alert and oriented x3. No focal neurologic deficits SKIN: No obvious lesions - Constitutional Vitals: Temp Pulse Resp BP Pulse Ox 98.3 F 65 18 109/46 96 12/02/20 07:35 12/02/20 07:35 12/02/20 07:35 12/02/20 07:35 12/02/20 07:35 Plan Diet: low salt Additional Instructions: Continue medications Follow up with: PRIMARY CARE, [Primary Care Provider] - 3-5 Days Prescriptions: Acetaminophen [8 Hour Acetaminophen] 650 mg PO Q8HR #15 tablet.er Pantoprazole [Protonix TAB] 40 mg PO QDAY #30 tablet
[2020-12-02] MEDS ORDERED: KETOROLAC 30 MG/1 ML INJ IV PRN (11:00)
--- NOTE | 2020-12-02 12:44 | Consultation ---
History of Present Illness Consult date: 12/02/20 Consult reason: chest pain History of present illness: This is a 45-year old woman who is admitted with atypical chest pain, thus this cardiac consultation. Chest pain is poorly characterized and non-exertional. Chest x-ray is negative and serial ECGs are normal sinus rhythm. There is no history of coronary artery disease. She has undergone extensive cardiac workup. Two years ago she had a coronary CTA that showed no evidence of obstructive coronary artery disease, zero calcium score. In 2018 and again 3 months ago, she had a negative thallium stress test. Normal left ventricular systolic function, ejection fraction 55-65% by echocardiogram. Past History Past Medical History: COPD, hypertension, migraines Past Surgical History: (x3) Social history: no significant social history Medications and Allergies Allergies Allergy/AdvReac Type Severity Reaction Status Date / Time phenobarbital AdvReac Unknown Verified 04/03/15 13:33 phenytoin sodium AdvReac Unknown Verified 04/03/15 13:33 [From Dilantin] phenytoin sodium extended AdvReac Unknown Verified 04/03/15 13:33 [From Dilantin] pseudoephedrine HCl AdvReac Unknown Verified 04/03/15 13:33 [From Sudafed] sulfamethoxazole AdvReac Unknown Verified 04/03/15 13:33 [From Bactrim] trimethoprim [From Bactrim] AdvReac Unknown Verified 04/03/15 13:33 triprolidine HCl AdvReac Unknown Verified 04/03/15 13:33 [From Actifed] Home Medications Medication Instructions Recorded Confirmed Last Taken Type Furosemide [Lasix TAB] 20 mg PO QDAY 10/01/15 12/02/20 2 Days Ago History ~07/14/18 Potassium Chloride [K-Dur] 10 meq PO QDAY 10/01/15 12/02/20 2 Days Ago History ~07/14/18 Albuterol Sulfate [Ventolin HFA] 2 puff IH Q4H PRN #1 hfa.aer.ad 07/17/18 12/02/20 Unknown Rx Arformoterol Nebu [Brovana Nebu] 15 mcg IH Q12HRT #20 ml 07/17/18 12/02/20 Unknown Rx Diltiazem HCl [Diltiazem 24Hr ER] 240 mg PO DAILY #30 cap.sa.24h 07/17/18 12/02/20 Unknown Rx Rizatriptan Benzoate [Maxalt] 5 mg PO DAILY PRN #9 07/17/18 12/02/20 Unknown Rx Venlafaxine Xr (Nf) 37.5 mg PO QHS #30 07/17/18 12/02/20 Unknown Rx busPIRone [Buspar] 10 mg PO TID #90 tablet 07/17/18 12/02/20 Unknown Rx Acetaminophen [8 Hour 650 mg PO Q8HR #15 tablet.er 12/02/20 Unknown Rx Acetaminophen] Pantoprazole [Protonix TAB] 40 mg PO QDAY #30 tablet 12/02/20 Unknown Rx Active Meds: Active Medications Acetaminophen (Acetaminophen 325 Mg Tab) 650 mg PO Q4H PRN PRN Reason: Pain MILD(1-3)/Fever >100.5/JEFF Aspirin (Aspirin Ec 325 Mg Tab) 325 mg PO QDAY [facility] Heparin Sodium (Porcine) (Heparin 5,000 Unit/1 Ml Vial) 5,000 unit SUB-Q Q8HR [facility] Last Admin: 12/02/20 06:40 Dose: 5,000 unit Documented by: Ketorolac Tromethamine (Ketorolac 30 Mg/1 Ml Inj) 30 mg IV Q6H PRN PRN Reason: Pain, Moderate (4-6) Stop: 12/07/20 10:59 Magnesium Hydroxide (Magnesium Hydroxide (Mom) Oral Liqd Udc) 30 ml PO Q4H PRN PRN Reason: Constipation Morphine Sulfate (Morphine 2 Mg/1 Ml Inj) 2 mg IV Q5MIN PRN PRN Reason: Chest Pain Nitroglycerin (Nitroglycerin 0.4 Mg Tab Subl) 0.4 mg SL Q5M PRN PRN Reason: Chest Pain Ondansetron HCl (Ondansetron 4 Mg/2 Ml Inj) 4 mg IV Q8H PRN PRN Reason: Nausea And Vomiting Sodium Chloride (Sodium Chloride 0.9% 10 Ml Flush Syringe) 10 ml IV BID SEAN Sodium Chloride (Sodium Chloride 0.9% 10 Ml Flush Syringe) 10 ml IV PRN PRN PRN Reason: LINE FLUSH Tramadol HCl (Tramadol 50 Mg Tab) 50 mg PO Q6H PRN PRN Reason: Pain, Moderate (4-6) Review of Systems Cardiovascular: chest pain, no orthopnea, no palpitations, no rapid/irregular heart beat, no edema, no syncope, no shortness of breath Neurological: headaches Physical Examination Vital Signs Temp Pulse Resp BP Pulse Ox 98.6 F 80 20 151/64 99 12/02/20 00:47 12/02/20 00:47 12/02/20 00:47 12/02/20 00:47 12/02/20 00:47 General appearance: no acute distress HEENT: Positive: PERRL Neck: Positive: trachea midline Cardiac: Positive: Reg Rate and Rhythm Lungs: Positive: Normal Breath Sounds Neuro: Positive: Grossly Intact Extremities: Absent: edema Results 12/02/20 06:00 12/02/20 06:00 Cardiac Enzymes 12/02/20 Range/Units 00:58 AST 22 (5-40) units/L Lipids 12/02/20 Range/Units 06:00 Triglycerides 106 (2-149) mg/dL Cholesterol 122 (50-199) mg/dL HDL Cholesterol 52 (40-59) mg/dL Cholesterol/HDL Ratio 2.34 % CBC 12/02/20 12/02/20 Range/Units 00:58 06:00 WBC 9.4 9.5 (4.5-11.0) K/mm3 RBC 4.26 4.28 (3.65-5.03) M/mm3 Hgb 12.4 12.2 (10.1-14.3) gm/dl Hct 37.3 37.6 (30.3-42.9) % Plt Count 257 253 (140-440) K/mm3 Lymph # (Auto) 2.9 3.8 (1.2-5.4) K/mm3 [place] # (Auto) 0.9 H 0.9 H (0.0-0.8) K/mm3 Eos # (Auto) 0.3 0.3 (0.0-0.4) K/mm3 Baso # (Auto) 0.0 0.1 (0.0-0.1) K/mm3 Comprehensive Metabolic Panel 12/02/20 12/02/20 Range/Units 00:58 06:00 Sodium 140 138 (137-145) mmol/L Potassium 3.7 3.8 (3.6-5.0) mmol/L Chloride 103.2 100.3 (98-107) mmol/L Carbon Dioxide 26 28 (22-30) mmol/L BUN 10 11 (7-17) mg/dL Creatinine 0.5 L 0.5 L (0.6-1.2) mg/dL Glucose 120 H 100 (65-100) mg/dL Calcium 8.7 8.7 (8.4-10.2) mg/dL AST 22 (5-40) units/L ALT 23 (7-56) units/L Alkaline Phosphatase 152 H (35-129) units/L Total Protein 6.5 (6.3-8.2) g/dL Albumin 4.0 (3.9-5) g/dL Assessment and Plan - Patient Problems (1) Chest pain Current Visit: Yes Status: Acute Qualifiers: Qualified Code(s): R07.9 - Chest pain, unspecified Plan to address problem: Atypical chest pain serial ECG are normal sinus rhythm. 08/2020: Lexiscan - normal perfusion scan. 08/2020: Echo - normal left ventricular systolic function, ejection fraction 55- 65% by echocardiogram. 2019: coronary CTA that showed no evidence of obstructive coronary artery disease, zero calcium score. 2018: negative thallium stress test. No further cardiac workup indicated.
[2020-12-03] MEDS ORDERED: ASPIRIN EC 325 MG TAB PO SCH (10:00)
--- NOTE | 2020-12-04 17:17 | Electrocardiograph Report ---
[facility] Test Date: 2020-12-02 Test Time: 01:05:44 Pat Name: VERONICA GUZMAN Department: Room: A479 1 Gender: F Exercise Scientist: VALDEMAR : 1975 Requested By: ADAN DEWITT Order Number: [id number] Reading MD: Dav Villeda Measurements Intervals [place] Rate: 61 P: 40 TN: 127 QRS: 27 QRSD: 92 T: 42 QT: 395 QTc: 398 Interpretive Statements Sinus rhythm No previous ECG available for comparison Electronically Signed On 12-04-2020 17:17:23 EDT by Dav Villeda
--- NOTE | 2020-12-04 17:20 | Electrocardiograph Report ---
[facility] Test Date: 2020-12-02 Test Time: 10:46:37 Pat Name: VERONICA GUZMAN Department: Room: A479 1 Gender: F Twisthand: [place] : 1975 Requested By: CHELSEA CERNA Order Number: [id number] Reading MD: Dav Villeda Measurements Intervals [place] Rate: 68 P: 30 CA: 133 QRS: 41 QRSD: 93 T: 24 QT: 390 QTc: 417 Interpretive Statements Sinus rhythm Compared to ECG 12/02/2020 01:05:44 No significant changes Electronically Signed On 12-04-2020 17:20:07 EDT by Dav Villeda
== END 2020-12-02 14:42 | disposition home or self-care (01) ==
LOC: ED 00:23 → 4A 01:58
PROVIDERS: ADMIT Internal Medicine Geriatric Medicine; ATTEND Internal Medicine
DX: R07.89 Other chest pain (principal); I11.0 Hypertensive heart disease with heart failure; I50.9 Heart failure, unspecified; J44.9 Chronic obstructive pulmonary disease, unspecified; G43.909 Migraine, unspecified, not intractable, without status migrainosus; R56.9 Unspecified convulsions; I34.1 Nonrheumatic mitral (valve) prolapse; I25.10 Atherosclerotic heart disease of native coronary artery without angina pectoris; Z98.891 History of uterine scar from previous surgery; Z98.61 Coronary angioplasty status; Z79.82 Long term (current) use of aspirin
CPT/HCPCS: 36415; 71045; 80053; 80061; 84484; 84703; 85025; 85379; 93005; 96372; 99285; G0378; J1644; 80048